=== PATIENT | female | born 1985 | race Caucasian/White ===

== ENCOUNTER 2016-09-21 22:51 | Emergency (ER) | payer MEDICAID | END 2016-09-22 03:00 | disposition left against medical advice (07) | LOC: ER 22:51 | DX: Z53.9 Procedure and treatment not carried out, unspecified reason (principal); J02.9 Acute pharyngitis, unspecified ==

== ENCOUNTER 2016-09-22 10:34 | Emergency (ER) | payer MEDICAID ==
[2016-09-22] MEDS ORDERED: ONDANSETRON HCL 8 MG TABLET ONE (12:21)
[2016-09-22] MEDS ORDERED: ACETAMINOPHEN 325 MG TABLET ONE (12:22)
== END 2016-09-22 13:40 | disposition home or self-care (01) ==
LOC: ER 10:34
DX: J06.9 Acute upper respiratory infection, unspecified (principal); J02.9 Acute pharyngitis, unspecified; R09.81 Nasal congestion; R51 Headache; R05 Cough; R50.9 Fever, unspecified; R11.0 Nausea
CPT/HCPCS: 87070; 87880; 99283

== ENCOUNTER 2016-12-05 12:39 | Emergency (ER) | payer SELFPAY ==
[2016-12-05 12:46] VITALS: BP 148/84
--- NOTE | 2016-12-05 12:55 | ER Document Report ---
ED Medical Screen (RME) - General Chief Complaint: Vaginal Bleeding Stated Complaint: GROIN PAIN WITHOUT INJURY Time Seen by Provider: 12/05/16 12:52 Mode of Arrival: Ambulatory Information source: Patient TRAVEL OUTSIDE OF THE [place] IN LAST 30 DAYS: No - HPI Patient complains to provider of: Abdominal pain Notes: 12/05/16 12:55 Patient is a 31-year-old female who presents to the emergency room complaining of periumbilical abdominal pain with left groin pain, and nausea that has been going on for the past few weeks, she denies any vomiting or diarrhea, no fever chills, no urinary symptoms, no vaginal discharge or irregular bleeding - Related Data Allergies/Adverse Reactions: amoxicillin trihydrate [From Augmentin] Allergy (Severe, Verified 12/05/16 12:44 ) Hives codeine [Codeine] Allergy (Severe, Verified 12/05/16 12:44) Hives midazolam HCl [From Versed] Allergy (Severe, Verified 12/05/16 12:44) Abnormal behavior Potassium Clavulanate * [From Augmentin] Allergy (Severe, Verified 12/05/16 12: 44) Hives Sulfa (Sulfonamide Antibiotics) Allergy (Severe, Verified 12/05/16 12:44) Hives Past Medical History - Past Medical History Cardiac Medical History: Reports: Hx Hypertension Pulmonary Medical History: Endocrine Medical History: Renal/ Medical History: Denies: Hx Peritoneal Dialysis Past Surgical History: Reports: Hx Cholecystectomy, Hx Tonsillectomy - Immunizations Immunizations up to date: Yes Hx Diphtheria, Pertussis, Tetanus Vaccination: Yes Physical Exam - Vital signs Vitals: Temp Pulse Resp BP Pulse Ox 98.6 F 71 18 148/84 H 98 12/05/16 12:45 12/05/16 12:45 12/05/16 12:45 12/05/16 12:45 12/05/16 12:45 Course - Vital Signs Vital signs: Temp Pulse Resp BP Pulse Ox 98.6 F 71 18 148/84 H 98 12/05/16 12:45 12/05/16 12:45 12/05/16 12:45 12/05/16 12:45 12/05/16 12:45
[2016-12-05 13:39] LABS: ABSOLUTE EOSINOPHILS # (AUTO) 0.1 10^3/uL (0.0-0.6); ABSOLUTE LYMPHOCYTES (AUTO) 2.2 10^3/uL (0.5-4.7); ABSOLUTE MONOCYTES (AUTO) 0.3 10^3/uL (0.1-1.4); ABSOLUTE NEUT (AUTO) 3.8 10^3/uL (1.7-8.2); BASOPHILS % (AUTO) 0.4 % (0-2); EOSINOPHILS % (AUTO) 0.9 % (0-6); HEMOGLOBIN 13.2 g/dL (12.0-15.5); HGB HCT DIFFERENCE 0.6; LYMPHOCYTES % (AUTO) 34.4 % (13-45); MEAN CORPUSCULAR HEMOGLOBIN 28.8 pg (27.0-33.4); MEAN CORPUSCULAR HGB CONC 33.9 g/dL (32.0-36.0); MEAN CORPUSCULAR VOLUME 85 fl (80-97); MONOCYTES % (AUTO) 5.2 % (3-13); RED BLOOD COUNT 4.59 10^6/uL (3.72-5.28); RED CELL DISTRIBUTION WIDTH 13.7 % (11.5-14.0); SEGMENTED NEUTROPHILS % (AUTO) 59.1 % (42-78); WHITE BLOOD COUNT 6.5 10^3/uL (4.0-10.5)
[2016-12-05 13:48] LABS: APPEARANCE,URINE SLIGHTLY-CLOUDY; BILIRUBIN,URINE NEGATIVE (NEGATIVE); GLUCOSE, URINE NEGATIVE (NEGATIVE); KETONES,URINE NEGATIVE (NEGATIVE); LEUKOCYTE ESTERASE,URINE NEGATIVE (NEGATIVE); NITRITE,URINE NEGATIVE (NEGATIVE); PROTEIN,URINE NEGATIVE (NEGATIVE); URINE SPECIFIC GRAVITY 1.027; UROBILINOGEN,URINE NEGATIVE mg/dL (<2.0)
[2016-12-05 13:58] LABS: ALANINE AMINOTRANSFERASE 34 U/L (9-52); ALBUMIN 4.6 g/dL (3.5-5.0); ALKALINE PHOSPHATASE 68 U/L (38-126); ANION GAP 11 (5-19); ASPARTATE AMINO TRANSFERASE 24 U/L (14-36); BILIRUBIN,DIRECT 0.3 mg/dL (0.0-0.4); BILIRUBIN,TOTAL 0.7 mg/dL (0.2-1.3); BLOOD UREA NITROGEN 18 mg/dL (7-20); CARBON DIOXIDE 27 mmol/L (22-30); CHLORIDE 103 mmol/L (98-107); CREATININE RESULT 0.68 mg/dL (0.52-1.25); GLUCOSE 102 mg/dL (75-110); LIPASE 111.4 U/L (23-300); POTASSIUM 4.1 mmol/L (3.6-5.0); SODIUM 140.9 mmol/L (137-145); TOTAL PROTEIN 7.7 g/dL (6.3-8.2)
--- NOTE | 2016-12-05 13:58 | RADIOLOGY REPORT (SQ) ---
EXAM DESCRIPTION: U/S NON OB PEL TV W/DOPPLER COMPLETED DATE/TIME: 12/05/2016 1:44 pm REASON FOR STUDY: left pelvic pain COMPARISON: None. TECHNIQUE: Dynamic and static grayscale images acquired of the pelvis via transvaginal approach and recorded on PACS. Additional selected color Doppler and spectral images recorded. LIMITATIONS: None. FINDINGS: UTERUS: Contour normal. No mass. ENDOMETRIAL STRIPE: No focal or generalized thickening. No masses. CERVIX: Nabothian cysts. RIGHT OVARY: No abnormal masses. RIGHT OVARY DOPPLER: Normal arterial vascular flow without evidence for torsion. LEFT OVARY: No abnormal masses. LEFT OVARY DOPPLER: Normal arterial vascular flow without evidence for torsion. FREE FLUID: None noted. OTHER: No other significant finding. MEASUREMENTS: UTERUS: 1.1 x 6.1 x 4.8 cm. ENDOMETRIAL STRIPE: 8 mm. RIGHT OVARY: 3.2 x 1.9 x 1.9 cm. LEFT OVARY: 2.9 x 1.8 x 1.8 cm. IMPRESSION: Nabothian cysts. Otherwise normal. TECHNICAL DOCUMENTATION: JOB ID: [id number]- All Rights Reserved
--- NOTE | 2016-12-05 14:12 | ER Document Report ---
ED GI/ - General Chief Complaint: Vaginal Bleeding Stated Complaint: GROIN PAIN WITHOUT INJURY Time Seen by Provider: 12/05/16 12:52 Mode of Arrival: Ambulatory Information source: Patient TRAVEL OUTSIDE OF THE [place] IN LAST 30 DAYS: No - HPI Patient complains to provider of: Abdominal pain, Pelvic pain Onset: Last week Timing/Duration: Intermittent Quality of pain: Achy, Cramping Severity at maximum: Mild Severity in ED: Mild Pain Level: 1 Location: Pelvis Vaginal bleeding (Compared to normal period): Spotting, Dark brown Associated symptoms: None Exacerbated by: Denies Relieved by: Denies Notes: 12/05/16 14:09 Is a 31-year-old female who presents to the emergency room complaining of left- sided pelvic pain is been going on for the past week with small amount of intermittent brownish spotting, she denies a history of similar symptoms previously, no urinary symptoms, no nausea, vomiting or diarrhea, no fever or chills - Related Data Allergies/Adverse Reactions: amoxicillin trihydrate [From Augmentin] Allergy (Severe, Verified 12/05/16 12:44 ) Hives codeine [Codeine] Allergy (Severe, Verified 12/05/16 12:44) Hives midazolam HCl [From Versed] Allergy (Severe, Verified 12/05/16 12:44) Abnormal behavior Potassium Clavulanate * [From Augmentin] Allergy (Severe, Verified 12/05/16 12: 44) Hives Sulfa (Sulfonamide Antibiotics) Allergy (Severe, Verified 12/05/16 12:44) Hives Past Medical History - General Information source: Patient - Social History Smoking Status: Never Smoker Chew tobacco use (# tins/day): No Frequency of alcohol use: None Drug Abuse: None Family History: Reviewed & Not Pertinent, Hypertension - Past Medical History Cardiac Medical History: Reports: Hx Hypertension Pulmonary Medical History: Endocrine Medical History: Renal/ Medical History: Denies: Hx Peritoneal Dialysis Past Surgical History: Reports: Hx Cholecystectomy, Hx Tonsillectomy - Immunizations Immunizations up to date: Yes Hx Diphtheria, Pertussis, Tetanus Vaccination: Yes Review of Systems - Review of Systems Constitutional: No symptoms reported EENT: No symptoms reported Cardiovascular: No symptoms reported Respiratory: No symptoms reported Gastrointestinal: No symptoms reported Genitourinary: No symptoms reported Female Genitourinary: See HPI Musculoskeletal: No symptoms reported Skin: No symptoms reported Hematologic/Lymphatic: No symptoms reported Neurological/Psychological: No symptoms reported -: Yes All other systems reviewed and negative Physical Exam - Vital signs Vitals: Temp Pulse Resp BP Pulse Ox 98.6 F 71 18 148/84 H 98 12/05/16 12:45 12/05/16 12:45 12/05/16 12:45 12/05/16 12:45 12/05/16 12:45 - Notes Notes: - General General appearance: Appears well, Alert In distress: None - HEENT Head: Normocephalic, Atraumatic Eyes: Normal Conjunctiva: Normal Extraocular movements intact: Yes Eyelashes: Normal Pupils: PERRL - Respiratory Respiratory status: No respiratory distress - Cardiovascular Rhythm: Regular - Abdominal Inspection: Mildly obese, mild tenderness in left groin area - Back Back: Normal - Extremities General upper extremity: Normal inspection General lower extremity: Normal inspection - Neurological Neuro grossly intact: Yes Orientation: AAOx4 [place] Coma Scale Eye Opening: Spontaneous [place] Coma Scale Verbal: Oriented [place] Coma Scale Motor: Obeys Commands [place] Coma Scale Total: 15 - Psychological Associated symptoms: Normal affect, Normal mood - Skin Skin Temperature: Warm Skin Moisture: Dry Skin Color: Normal Course - Re-evaluation Re-evalutation: 12/05/16 21:13 Lab and imaging findings were discussed with patient at bedside which are unremarkable, she was given a prescription for Motrin 600 mg and advised to follow-up with her primary care provider as needed, return if symptoms worsen, patient acknowledges understanding and agreement with this plan - Vital Signs Vital signs: Temp Pulse Resp BP Pulse Ox 98.6 F 71 18 148/84 H 98 12/05/16 12:45 12/05/16 12:45 12/05/16 12:45 12/05/16 12:45 12/05/16 12:45 - Laboratory Result Diagrams: 12/05/16 13:15 12/05/16 13:15 Laboratory results interpreted by me: 12/05/16 13:10 Urine Blood SMALL H - Diagnostic Test Radiology reviewed: Image reviewed, Reports reviewed Discharge - Discharge Clinical Impression: Pelvic pain Condition: Stable Disposition: HOME, SELF-CARE Instructions: Pelvic Pain ([facility]) Additional Instructions: Follow up with your primary care provider in one to 2 days. Return to the emergency room immediately if symptoms worsen or any additional concerns. Prescriptions: Ibuprofen [Motrin 600 Mg Tablet] 600 mg PO TID #30 tablet
== END 2016-12-05 14:25 | disposition home or self-care (01) ==
LOC: ER 12:39
DX: R10.2 Pelvic and perineal pain (principal); I10 Essential (primary) hypertension; Z88.0 Allergy status to penicillin; Z88.5 Allergy status to narcotic agent; Z88.2 Allergy status to sulfonamides; Z88.4 Allergy status to anesthetic agent; Z90.49 Acquired absence of other specified parts of digestive tract
CPT/HCPCS: 36415; 76830; 80053; 81001; 83690; 84703; 85025; 87086; 93976; 99284

== ENCOUNTER 2016-12-21 22:53 | Emergency (ER) | payer SELFPAY ==
--- NOTE | 2016-12-21 23:24 | ER Document Report ---
ED General - General Mode of Arrival: Ambulatory Information source: Patient TRAVEL OUTSIDE OF THE [place] IN LAST 30 DAYS: No - HPI Onset: This evening <DARA SANTIAGO - Last Filed: 12/22/16 01:09> <ROSIO HILLMAN - Last Filed: 12/27/16 11:37> - General Chief Complaint: Chest Pain Stated Complaint: CHEST PAIN Time Seen by Provider: 12/21/16 23:17 Notes: Patient is a 31-year-old female presenting to the emergency department for chest pain. Patient states her chest pain was onset at night and is located in the middle of her chest. Patient's pain also radiates into her back and shoulders. Patient's pain is waxing and waning and is dull and achy. Patient' s pain lasts for more than a minute at most. Patient denies any history of smoking, control use, or history of blood clots in family or herself. Patient does have a history of hypertension and takes lisinopril. Patient also has a history of ovarian cysts and cholecystectomy. 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 (DARA SANTIAGO) - Related Data Allergies/Adverse Reactions: amoxicillin trihydrate [From Augmentin] Allergy (Severe, Verified 12/05/16 12:44 ) Hives codeine [Codeine] Allergy (Severe, Verified 12/05/16 12:44) Hives midazolam HCl [From Versed] Allergy (Severe, Verified 12/05/16 12:44) Abnormal behavior Potassium Clavulanate * [From Augmentin] Allergy (Severe, Verified 12/05/16 12: 44) Hives Sulfa (Sulfonamide Antibiotics) Allergy (Severe, Verified 12/05/16 12:44) Hives Past Medical History - General Information source: Patient - Social History Smoking Status: Never Smoker Cigarette use (# per day): No Chew tobacco use (# tins/day): No Smoking Education Provided: No Frequency of alcohol use: None Drug Abuse: None Family History: Hypertension Patient has suicidal ideation: No Patient has homicidal ideation: No - Past Medical History Cardiac Medical History: Reports: Hx Hypertension Pulmonary Medical History: Endocrine Medical History: Renal/ Medical History: Past Surgical History: Reports: Hx Cholecystectomy, Hx Tonsillectomy - Immunizations Immunizations up to date: Yes Hx Diphtheria, Pertussis, Tetanus Vaccination: Yes <DARA SANTIAGO - Last Filed: 12/22/16 01:09> Review of Systems - Review of Systems Constitutional: No symptoms reported EENT: No symptoms reported Cardiovascular: See HPI, Chest pain Respiratory: No symptoms reported Gastrointestinal: No symptoms reported Genitourinary: No symptoms reported Female Genitourinary: No symptoms reported Musculoskeletal: See HPI Skin: No symptoms reported Hematologic/Lymphatic: No symptoms reported Neurological/Psychological: No symptoms reported -: Yes All other systems reviewed and negative <CHRISTOPHEDARA ROBISON - Last Filed: 12/22/16 01:09> Physical Exam - Vital signs Interpretation: Hypertensive <DARA SANTIAGO - Last Filed: 12/22/16 01:09> <ROSIO HILLMAN - Last Filed: 12/27/16 11:37> - Vital signs Vitals: Temp Pulse Resp BP Pulse Ox 98.0 F 81 16 140/98 H 98 12/21/16 23:01 12/21/16 23:01 12/21/16 23:01 12/21/16 23:01 12/21/16 23:01 - Notes Notes: GENERAL: Alert, interacts well. No acute distress. HEAD: Normocephalic, atraumatic. EYES: Appear normal. Pupils equal, round, and reactive to light. ENT: Moist mucus membranes, tongue midline. NECK: Full range of motion. Supple. Trachea midline. LUNGS: Clear to auscultation bilaterally, no wheezes, rales, or rhonchi. No respiratory distress. No anterior chest wall tenderness or sternal tenderness with palpation. HEART: Regular rate and rhythm. No murmurs, gallops, or rubs. ABDOMEN: Soft, non-tender. Non-distended. Normal bowel sounds. EXTREMITIES: Moves all 4 extremities spontaneously. Normal strength. No edema. NEUROLOGICAL: Alert and oriented x3. Normal speech. No focal neurological deficits. GSC 15. PSYCH: Normal affect, normal mood. SKIN: Warm, dry, normal turgor. No rashes or lesions noted. (DARA SANTIAGO) Course - Laboratory Result Diagrams: 12/21/16 23:25 12/21/16 23:25 <DARA SANTIAGO - Last Filed: 12/22/16 01:09> - Laboratory Result Diagrams: 12/21/16 23:25 12/21/16 23:25 <ROSIO HILLMAN - Last Filed: 12/27/16 11:37> - Vital Signs Vital signs: Temp Pulse Resp BP Pulse Ox 97.7 F 83 15 134/75 H 96 12/22/16 02:45 12/22/16 02:45 12/22/16 02:45 12/22/16 02:45 12/22/16 02:45 - Laboratory Laboratory results interpreted by me: 12/21/16 23:25 Hct 35.6 L - EKG Interpretation by Me Additional EKG results interpreted by me: 12/22/16 02:37 J sinus rhythm LVH no acute ST segment elevation or depression (ROSIO HILLMAN) Discharge <DARA SANTIAGO - Last Filed: 12/22/16 01:09> <ROSIO HILLMAN - Last Filed: 12/27/16 11:37> - Discharge Clinical Impression: Chest pain nonspecific Condition: Stable Disposition: HOME, SELF-CARE Instructions: Chest Pain of Unclear Cause ([facility]) Forms: Return to Work Referrals: [facility] [Provider Group] - Follow up in 3-5 days Scribe Attestation: 12/22/16 02:36 I personally performed the services described in the documentation, reviewed and edited the documentation which was dictated to my scribe in my presence, and it accurately records my words and actions. (ROSIO HILLMAN) Scribe Documentation - Scribe Written by Scribe:: Seema Deleon, 12/22/2016 1:10 acting as scribe for :: James <DARA SANTIAGO - Last Filed: 12/22/16 01:09>
[2016-12-21 23:39] LABS: ABSOLUTE BASOPHILS # (AUTO) 0.1 10^3/uL (0.0-0.2); ABSOLUTE EOSINOPHILS # (AUTO) 0.1 10^3/uL (0.0-0.6); ABSOLUTE LYMPHOCYTES (AUTO) 2.7 10^3/uL (0.5-4.7); ABSOLUTE MONOCYTES (AUTO) 0.5 10^3/uL (0.1-1.4); ABSOLUTE NEUT (AUTO) 4.1 10^3/uL (1.7-8.2); BASOPHILS % (AUTO) 0.9 % (0-2); EOSINOPHILS % (AUTO) 1.4 % (0-6); HEMATOCRIT 35.6 % (36.0-47.0); HEMOGLOBIN 12.1 g/dL (12.0-15.5); HGB HCT DIFFERENCE 0.7; LYMPHOCYTES % (AUTO) 35.8 % (13-45); MEAN CORPUSCULAR HEMOGLOBIN 29.4 pg (27.0-33.4); MEAN CORPUSCULAR VOLUME 87 fl (80-97); MONOCYTES % (AUTO) 6.9 % (3-13); RED BLOOD COUNT 4.11 10^6/uL (3.72-5.28); WHITE BLOOD COUNT 7.4 10^3/uL (4.0-10.5)
--- NOTE | 2016-12-21 23:48 | RADIOLOGY REPORT (SQ) ---
EXAM DESCRIPTION: CHEST SINGLE VIEW COMPLETED DATE/TIME: 12/21/2016 11:40 pm REASON FOR STUDY: chest pain COMPARISON: March 2015 EXAM PARAMETERS: NUMBER OF VIEWS: One view. TECHNIQUE: Single frontal radiographic view of the chest acquired. RADIATION DOSE: NA LIMITATIONS: None. FINDINGS: LUNGS AND PLEURA: No opacities, masses or pneumothorax. No pleural effusion. MEDIASTINUM AND HILAR STRUCTURES: No masses. Contour normal. HEART AND VASCULAR STRUCTURES: Heart normal in size. Normal vasculature. BONES: No acute findings. Mild thoracic scoliosis convex to the right is again identified. HARDWARE: None in the chest. OTHER: No other significant finding. IMPRESSION: No significant interval change. No acute findings. Other findings as noted above TECHNICAL DOCUMENTATION: JOB ID: [id number]
[2016-12-22 00:02] LABS: ANION GAP 10 (5-19); BLOOD UREA NITROGEN 15 mg/dL (7-20); CALCIUM 9.8 mg/dL (8.4-10.2); CARBON DIOXIDE 26 mmol/L (22-30); CHLORIDE 104 mmol/L (98-107); CREATININE RESULT 0.58 mg/dL (0.52-1.25); GLUCOSE 91 mg/dL (75-110); POTASSIUM 4.2 mmol/L (3.6-5.0); SODIUM 139.9 mmol/L (137-145)
[2016-12-22 00:15] LABS: TROPONIN I < 0.012 ng/mL
[2016-12-22 01:15] LABS: URINE BARBITURATES SCREEN NEGATIVE; URINE METHADONE SCREEN NEGATIVE; URINE OPIATES LOW NEGATIVE; URINE PHENCYCLIDINE SCREEN NEGATIVE
[2016-12-22 02:49] VITALS: BP 134/75
--- NOTE | 2016-12-22 08:11 | EKG REPORT ---
SEVERITY:- ABNORMAL ECG - SINUS RHYTHM CONSIDER LEFT VENTRICULAR HYPERTROPHY : Confirmed by: Cedric Manriquez MD 22-Dec-2016 08:10:30
== END 2016-12-22 02:45 | disposition home or self-care (01) ==
LOC: ER 22:53
DX: R07.89 Other chest pain (principal); I10 Essential (primary) hypertension; Z88.6 Allergy status to analgesic agent; Z88.2 Allergy status to sulfonamides
CPT/HCPCS: 36415; 71010; 80048; 80307; 83880; 84484; 85025; 93005; 93010; 99285

== ENCOUNTER 2017-03-01 15:56 | Emergency (ER) | payer SELFPAY ==
[2017-03-01] MEDS ORDERED: BUTALB/ACETAMINOPHEN/CAFFEINE 1 TAB EACH PO ONE (17:34)
[2017-03-01 18:02] LABS: ABSOLUTE EOSINOPHILS # (AUTO) 0.1 10^3/uL (0.0-0.6); ABSOLUTE LYMPHOCYTES (AUTO) 2.8 10^3/uL (0.5-4.7); ABSOLUTE MONOCYTES (AUTO) 0.5 10^3/uL (0.1-1.4); ABSOLUTE NEUT (AUTO) 4.7 10^3/uL (1.7-8.2); BASOPHILS % (AUTO) 0.6 % (0-2); EOSINOPHILS % (AUTO) 1.8 % (0-6); HEMATOCRIT 39.9 % (36.0-47.0); HEMOGLOBIN 13.7 g/dL (12.0-15.5); HGB HCT DIFFERENCE 1.2; LYMPHOCYTES % (AUTO) 34.1 % (13-45); MEAN CORPUSCULAR HEMOGLOBIN 29.4 pg (27.0-33.4); MEAN CORPUSCULAR HGB CONC 34.4 g/dL (32.0-36.0); MEAN CORPUSCULAR VOLUME 86 fl (80-97); MONOCYTES % (AUTO) 6.5 % (3-13); RED BLOOD COUNT 4.65 10^6/uL (3.72-5.28); RED CELL DISTRIBUTION WIDTH 13.6 % (11.5-14.0); WHITE BLOOD COUNT 8.2 10^3/uL (4.0-10.5)
[2017-03-01 18:13] LABS: APPEARANCE,URINE CLEAR; BILIRUBIN,URINE NEGATIVE (NEGATIVE); GLUCOSE, URINE NEGATIVE (NEGATIVE); KETONES,URINE NEGATIVE (NEGATIVE); LEUKOCYTE ESTERASE,URINE NEGATIVE (NEGATIVE); NITRITE,URINE NEGATIVE (NEGATIVE); PROTEIN,URINE NEGATIVE (NEGATIVE); URINE SPECIFIC GRAVITY 1.013; UROBILINOGEN,URINE NEGATIVE mg/dL (<2.0)
[2017-03-01 18:17] LABS: ALANINE AMINOTRANSFERASE 41 U/L (9-52); ALBUMIN 4.7 g/dL (3.5-5.0); ALKALINE PHOSPHATASE 62 U/L (38-126); ANION GAP 12 (5-19); ASPARTATE AMINO TRANSFERASE 26 U/L (14-36); BILIRUBIN,DIRECT 0.4 mg/dL (0.0-0.4); BILIRUBIN,TOTAL 0.5 mg/dL (0.2-1.3); BLOOD UREA NITROGEN 13 mg/dL (7-20); CARBON DIOXIDE 28 mmol/L (22-30); CHLORIDE 102 mmol/L (98-107); CREATININE RESULT 0.63 mg/dL (0.52-1.25); GLUCOSE 90 mg/dL (75-110); POTASSIUM 4.5 mmol/L (3.6-5.0); SODIUM 141.7 mmol/L (137-145); TOTAL PROTEIN 7.6 g/dL (6.3-8.2)
--- NOTE | 2017-03-01 18:45 | ER Document Report ---
ED General - General Chief Complaint: Headache Stated Complaint: HEADACHE,NAUSEA,LEG SWELLING Time Seen by Provider: 03/01/17 17:31 Mode of Arrival: Ambulatory Information source: Patient Notes: Patient complains of bilateral lower extremity swelling as well as a headache. Headache is diffuse and throbbing. It does not radiate. Nothing makes it better or worse. She states that it is intermittent. He denies any shortness of breath nausea or vomiting. The pain is aching sensation. TRAVEL OUTSIDE OF THE [place] IN LAST 30 DAYS: No - Related Data Allergies/Adverse Reactions: amoxicillin trihydrate [From Augmentin] Allergy (Severe, Verified 03/01/17 16:10 ) Hives codeine [Codeine] Allergy (Severe, Verified 03/01/17 16:10) Hives midazolam HCl [From Versed] Allergy (Severe, Verified 03/01/17 16:10) Abnormal behavior Potassium Clavulanate * [From Augmentin] Allergy (Severe, Verified 03/01/17 16: 10) Hives Sulfa (Sulfonamide Antibiotics) Allergy (Severe, Verified 03/01/17 16:10) Hives Past Medical History - General Information source: Patient - Social History Smoking Status: Unknown if Ever Smoked Frequency of alcohol use: Occasional Drug Abuse: None Family History: Hypertension - Past Medical History Cardiac Medical History: Reports: Hx Hypertension Pulmonary Medical History: Endocrine Medical History: Renal/ Medical History: Denies: Hx Peritoneal Dialysis Past Surgical History: Reports: Hx Cholecystectomy, Hx Tonsillectomy - Immunizations Immunizations up to date: Yes Hx Diphtheria, Pertussis, Tetanus Vaccination: Yes Review of Systems - Review of Systems Constitutional: denies: Chills, Fever Cardiovascular: denies: Chest pain, Palpitations Respiratory: denies: Cough, Short of breath -: Yes All other systems reviewed and negative Physical Exam - Vital signs Vitals: Temp Pulse BP Pulse Ox 98.6 F 71 146/101 H 98 03/01/17 16:08 03/01/17 16:08 03/01/17 16:08 03/01/17 16:08 Interpretation: Hypertensive - General General appearance: Appears well, Alert - HEENT Head: Normocephalic, Atraumatic Eyes: Normal Pupils: PERRL - Respiratory Respiratory status: No respiratory distress Chest status: Nontender Breath sounds: Normal Chest palpation: Normal - Cardiovascular Rhythm: Regular Heart sounds: Normal auscultation Murmur: No - Abdominal Inspection: Normal Distension: No distension Bowel sounds: Normal Tenderness: Nontender Organomegaly: No organomegaly - Back Back: Normal, Nontender - Extremities General upper extremity: Normal inspection, Nontender, Normal color, Normal ROM , Normal temperature General lower extremity: Normal inspection, Nontender, Normal color, Normal ROM , Normal temperature, Normal weight bearing. No: Rosalina's sign - Neurological Neuro grossly intact: Yes Cognition: Normal Orientation: AAOx4 [place] Coma Scale Eye Opening: Spontaneous [place] Coma Scale Verbal: Oriented [place] Coma Scale Motor: Obeys Commands [place] Coma Scale Total: 15 Speech: Normal Motor strength normal: LUE, RUE, LLE, RLE Sensory: Normal - Psychological Associated symptoms: Normal affect, Normal mood - Skin Skin Temperature: Warm Skin Moisture: Dry Skin Color: Normal Course - Vital Signs Vital signs: Temp Pulse Resp BP Pulse Ox 98.6 F 71 143/94 H 98 03/01/17 16:08 03/01/17 16:08 03/01/17 17:32 03/01/17 16:08 - Laboratory Result Diagrams: 03/01/17 17:35 03/01/17 17:35 Laboratory results interpreted by me: 03/01/17 17:45 Urine Blood SMALL H Discharge - Discharge Clinical Impression: Bilateral lower extremity edema Headache Qualifiers: Headache type: unspecified Headache chronicity pattern: acute headache Intractability: intractable Qualified Code(s): R51 - Headache Condition: Stable Disposition: HOME, SELF-CARE Instructions: Headache ([facility]) Additional Instructions: Please call your primary care physician as soon as possible to arrange follow- up. Prescriptions: Butalb/Acetaminophen/Caffeine [Fioricet (50-325-40 mg) Tablet] 1 - 2 tab PO Q6 PRN #15 tab PRN Reason: Forms: Elevated Blood Pressure
[2017-03-01 18:57] VITALS: BP 149/93
== END 2017-03-01 18:55 | disposition home or self-care (01) ==
LOC: ER 15:56
DX: R51 Headache (principal); R60.0 Localized edema; I10 Essential (primary) hypertension; Z88.0 Allergy status to penicillin; Z88.5 Allergy status to narcotic agent; Z88.2 Allergy status to sulfonamides; Z88.4 Allergy status to anesthetic agent
CPT/HCPCS: 99283; 36415; 85025; 81025; 80053; 81001; J3490

== ENCOUNTER 2017-04-06 14:58 | Emergency (ER) | payer MEDICAID ==
[2017-04-06] MEDS ORDERED: NORMAL SALINE 1000 ML 1,000 ML IV ONE (15:46)
[2017-04-06] MEDS ORDERED: METOCLOPRAMIDE HCL INJ/PF 10 MG/2 ML SDV IV ONE (15:47)
--- NOTE | 2017-04-06 15:47 | ER Document Report ---
ED Medical Screen (RME) - General Chief Complaint: Vomiting Stated Complaint: VOMITING Time Seen by Provider: 04/06/17 15:46 Notes: Patient states she is 8 weeks and has severe nausea and vomiting. She denies any significant pain. She states she did have a ultrasound done 2 days ago and everything was "normal". No vaginal discharge or bleeding. TRAVEL OUTSIDE OF THE [place] IN LAST 30 DAYS: No - Related Data Allergies/Adverse Reactions: amoxicillin trihydrate [From Augmentin] Allergy (Severe, Verified 04/06/17 15:18 ) Hives codeine [Codeine] Allergy (Severe, Verified 03/13/17 16:30) Hives midazolam HCl [From Versed] Allergy (Severe, Verified 03/13/17 16:30) Abnormal behavior Potassium Clavulanate * [From Augmentin] Allergy (Severe, Verified 03/13/17 16: 30) Hives Sulfa (Sulfonamide Antibiotics) Allergy (Severe, Verified 03/13/17 16:30) Hives Past Medical History - Past Medical History Cardiac Medical History: Reports: Hx Hypertension Pulmonary Medical History: Endocrine Medical History: Renal/ Medical History: Denies: Hx Peritoneal Dialysis Past Surgical History: Reports: Hx Cholecystectomy, Hx Tonsillectomy - Immunizations Immunizations up to date: Yes Hx Diphtheria, Pertussis, Tetanus Vaccination: Yes Physical Exam - Vital signs Vitals: Temp Pulse Resp BP Pulse Ox 98.3 F 86 12 135/81 H 97 04/06/17 15:19 04/06/17 15:19 04/06/17 15:19 04/06/17 15:19 04/06/17 15:19 Course - Vital Signs Vital signs: Temp Pulse Resp BP Pulse Ox 98.3 F 86 12 135/81 H 97 04/06/17 15:19 04/06/17 15:19 04/06/17 15:19 04/06/17 15:19 04/06/17 15:19
[2017-04-06 16:19] LABS: ABSOLUTE LYMPHOCYTES (AUTO) 1.1 10^3/uL (0.5-4.7); ABSOLUTE MONOCYTES (AUTO) 0.2 10^3/uL (0.1-1.4); ABSOLUTE NEUT (AUTO) 4.2 10^3/uL (1.7-8.2); BASOPHILS % (AUTO) 0.4 % (0-2); EOSINOPHILS % (AUTO) 0.9 % (0-6); HEMATOCRIT 37.9 % (36.0-47.0); HGB HCT DIFFERENCE 1.1; LYMPHOCYTES % (AUTO) 19.2 % (13-45); MEAN CORPUSCULAR HEMOGLOBIN 29.3 pg (27.0-33.4); MEAN CORPUSCULAR HGB CONC 34.2 g/dL (32.0-36.0); MEAN CORPUSCULAR VOLUME 86 fl (80-97); MONOCYTES % (AUTO) 4.2 % (3-13); RED BLOOD COUNT 4.42 10^6/uL (3.72-5.28); RED CELL DISTRIBUTION WIDTH 13.9 % (11.5-14.0); SEGMENTED NEUTROPHILS % (AUTO) 75.3 % (42-78); WHITE BLOOD COUNT 5.6 10^3/uL (4.0-10.5)
[2017-04-06 16:48] LABS: ALANINE AMINOTRANSFERASE 38 U/L (9-52); ALBUMIN 4.3 g/dL (3.5-5.0); ALKALINE PHOSPHATASE 68 U/L (38-126); ANION GAP 13 (5-19); ASPARTATE AMINO TRANSFERASE 23 U/L (14-36); BILIRUBIN,DIRECT 0.4 mg/dL (0.0-0.4); BILIRUBIN,TOTAL 0.8 mg/dL (0.2-1.3); BLOOD UREA NITROGEN 9 mg/dL (7-20); CALCIUM 9.2 mg/dL (8.4-10.2); CARBON DIOXIDE 22 mmol/L (22-30); CHLORIDE 103 mmol/L (98-107); CREATININE RESULT 0.59 mg/dL (0.52-1.25); GLUCOSE 85 mg/dL (75-110); POTASSIUM 4.3 mmol/L (3.6-5.0); SODIUM 137.8 mmol/L (137-145); TOTAL PROTEIN 6.9 g/dL (6.3-8.2)
[2017-04-06 17:53] LABS: APPEARANCE,URINE SLIGHTLY-CLOUDY; BILIRUBIN,URINE NEGATIVE (NEGATIVE); GLUCOSE, URINE NEGATIVE (NEGATIVE); KETONES,URINE 20 mg/dL (NEGATIVE); LEUKOCYTE ESTERASE,URINE NEGATIVE (NEGATIVE); NITRITE,URINE NEGATIVE (NEGATIVE); PROTEIN,URINE NEGATIVE (NEGATIVE); URINE SPECIFIC GRAVITY 1.015; UROBILINOGEN,URINE NEGATIVE mg/dL (<2.0)
[2017-04-06] MEDS ORDERED: ONDANSETRON ODT 4 MG TAB (6 TAB/DSPK) PO PRN (19:07)
--- NOTE | 2017-04-06 19:07 | ER Document Report ---
ED General - General Chief Complaint: Vomiting Stated Complaint: VOMITING Time Seen by Provider: 04/06/17 15:46 Notes: Patient is a 31-year-old female 8 weeks who presents with persistent vomiting throughout the day today. Patient denies any other complaints other than the persistence of her vomiting. She has not tried any to improve her symptoms. She has not noted that anything other than attempting oral intake worsens her symptoms. She states that she has had some mild nausea and vomiting during this but today was much worse than her normal. She has not seen her [employer] regarding today's concerns. She denies any vaginal bleeding, vaginal discharge or abdominal pain. TRAVEL OUTSIDE OF THE [place] IN LAST 30 DAYS: No - Related Data Allergies/Adverse Reactions: amoxicillin trihydrate [From Augmentin] Allergy (Severe, Verified 04/06/17 15:18 ) Hives codeine [Codeine] Allergy (Severe, Verified 03/13/17 16:30) Hives midazolam HCl [From Versed] Allergy (Severe, Verified 03/13/17 16:30) Abnormal behavior Potassium Clavulanate * [From Augmentin] Allergy (Severe, Verified 03/13/17 16: 30) Hives Sulfa (Sulfonamide Antibiotics) Allergy (Severe, Verified 03/13/17 16:30) Hives Past Medical History - General Information source: Patient - Social History Smoking Status: Never Smoker Chew tobacco use (# tins/day): No Frequency of alcohol use: None Drug Abuse: None Lives with: Spouse/Significant other Family History: Hypertension Patient has suicidal ideation: No Patient has homicidal ideation: No - Past Medical History Cardiac Medical History: Reports: Hx Hypertension Pulmonary Medical History: Endocrine Medical History: Renal/ Medical History: Denies: Hx Peritoneal Dialysis Past Surgical History: Reports: Hx Cholecystectomy, Hx Tonsillectomy - Immunizations Immunizations up to date: Yes Hx Diphtheria, Pertussis, Tetanus Vaccination: Yes Review of Systems - Review of Systems Notes: Constitutional: Negative for fever. HENT: Negative for sore throat. Eyes: Negative for visual changes. Cardiovascular: Negative for chest pain. Respiratory: Negative for shortness of breath. Gastrointestinal: Negative for abdominal pain, positive for vomiting Genitourinary: Negative for dysuria. Musculoskeletal: Negative for back pain. Skin: Negative for rash. Neurological: Negative for headaches, weakness or numbness. 10 point ROS negative except as marked above and in HPI. Physical Exam - Vital signs Vitals: Temp Pulse Resp BP Pulse Ox 98.3 F 86 12 135/81 H 97 04/06/17 15:19 04/06/17 15:19 04/06/17 15:19 04/06/17 15:19 04/06/17 15:19 Interpretation: Normal Notes: PHYSICAL EXAMINATION: GENERAL: Well-appearing, well-nourished and in no acute distress. HEAD: Atraumatic, normocephalic. EYES: Pupils equal round and reactive to light, extraocular movements intact, sclera anicteric, conjunctiva are normal. ENT: nares patent, oropharynx clear without exudates. Moist mucous membranes. NECK: Normal range of motion, supple without lymphadenopathy LUNGS: Breath sounds clear to auscultation bilaterally and equal. No wheezes rales or rhonchi. HEART: Regular rate and rhythm without murmurs ABDOMEN: Soft, nontender, normoactive bowel sounds. No guarding, no rebound. No masses appreciated. EXTREMITIES: Normal range of motion, no pitting or edema. No cyanosis. NEUROLOGICAL: No focal neurological deficits. Moves all extremities spontaneously and on command. PSYCH: Normal mood, normal affect. SKIN: Warm, Dry, normal turgor, no rashes or lesions noted. Course - Re-evaluation Re-evalutation: 04/06/17 19:07 Patient presents with persistent vomiting during . Vitals at time of arrival unremarkable without tachycardia or hypotension. Laboratories reveal a normal creatinine and no evidence of significant dehydration. Patient was able to tolerate oral intake here in the emergency department. IV fluids were provided. No vaginal bleeding or discharge. Based on abdominal exam, vitals and history I do not suspect an acute appendicitis, cholestasis of , acute cholecystitis, pancreatitis, or bowel obstruction. Patient will be started on a combination of doxylamine and vitamin B6. At this time will discharge with return precautions and follow-up recommendations. Verbal discharge instructions given a the bedside and opportunity for questions given. Medication warnings reviewed. Patient is in agreement with this plan and has verbalized understanding of return precautions and the need for primary care follow-up in the next 24-72 hours. - Vital Signs Vital signs: Temp Pulse Resp BP Pulse Ox 98.1 F 73 18 133/82 H 99 04/06/17 19:29 04/06/17 19:29 04/06/17 19:29 04/06/17 19:29 04/06/17 19:29 - Laboratory Result Diagrams: 04/06/17 16:10 04/06/17 16:10 Laboratory results interpreted by me: 04/06/17 17:25 Urine Ketones 20 H Urine Blood SMALL H Discharge - Discharge Clinical Impression: Vomiting during Condition: Good Disposition: HOME, SELF-CARE Additional Instructions: You have been seen for vomiting during . You should continue to drink plenty of water and consider taking a solution such as Pedialyte if your having difficulty eating food. Please return if you become unable to drink any fluids for more than 12 hours, urinate less than twice a day, pass out, or have any other symptoms that are concerning to you. For nausea and vomiting during I recommend: Start with 10-12.5 mg of pyridoxine (vitamin B6) three times a day for 2 days. If not fully effective, Increase to 12.5 mg of pyridoxine four times a day for 2 days. If not fully effective, Increase to 25 mg of pyridoxine three times a day for 2 days. If not fully effective, Continue 25 mg pyridoxine 3 times a day, and add 12.5 mg of doxylamine before bedtime each day for 2 days. If not fully effective, Continue 25 mg pyridoxine 3 times a day, and take 12.5 mg of doxylamine twice a day. If not fully effective, Continue 25 mg pyridoxine 3 times a day, and take 12.5 mg of doxylamine three times a day. If not fully effective, Continue 25 mg pyridoxine 3 times a day, and 12.5 mg of doxylamine 3 times a day , while adding Emetrol, one to two tablespoons (15-30 cc) taken once or twice a day as needed. (Emetrol is an lova-sdz-czwesry mixture of sugar syrups and phosphoric acid [phosphorylated carbohydrate solution]) that acts by soothing the actual wall of the gastrointestinal tract). If not fully effective, Consult with your doctor. Forms: Return to Work Referrals: FELICIA KUMAR PA-C [Primary Care Provider] - Follow up as needed
[2017-04-06 19:29] VITALS: BP 133/82
== END 2017-04-06 19:29 | disposition home or self-care (01) ==
LOC: ER 14:58
DX: R11.2 Nausea with vomiting, unspecified (principal); Z3A.08 8 weeks gestation of pregnancy
CPT/HCPCS: 99284; 96361; 96374; 36415; 85025; 80053; 81001; J2765; J7030

== ENCOUNTER 2017-05-08 11:40 | Emergency (ER) | payer MEDICAID ==
--- NOTE | 2017-05-08 12:05 | ER Document Report ---
ED Medical Screen (RME) - General Chief Complaint: Pelvic Pain Stated Complaint: PELVIC AND LOW BACK PAIN Time Seen by Provider: 05/08/17 11:55 Notes: This 31-year-old female patient who is 12 weeks 3 days based on her ultrasound done at [facility] when she is 7 weeks . She reports onset last week of some pelvic pain and cramping which would occur about once a day and last a few minutes. It is now been 3 days of constant pain which is in the suprapubic region, kind of goes into the right lower quadrant and into both sides of the back. She states her urine has been dark. She she was switched from lisinopril to labetalol in March when she was found to be . I have greeted and performed a rapid initial assessment of this patient. A comprehensive ED assessment and evaluation of the patient, analysis of test results and completion of the medical decision making process will be conducted by additional ED providers. TRAVEL OUTSIDE OF THE [place] IN LAST 30 DAYS: No - Related Data Allergies/Adverse Reactions: amoxicillin trihydrate [From Augmentin] Allergy (Severe, Verified 05/08/17 11:41 ) Hives codeine [Codeine] Allergy (Severe, Verified 05/08/17 11:41) Hives midazolam HCl [From Versed] Allergy (Severe, Verified 05/08/17 11:41) Abnormal behavior Potassium Clavulanate * [From Augmentin] Allergy (Severe, Verified 05/08/17 11: 41) Hives Sulfa (Sulfonamide Antibiotics) Allergy (Severe, Verified 05/08/17 11:41) Hives Home Medications: Current Home Medications Labetalol HCl 50 mg PO BID 05/08/17 [History] Past Medical History - Past Medical History Cardiac Medical History: Reports: Hx Hypertension Pulmonary Medical History: Endocrine Medical History: Renal/ Medical History: Denies: Hx Peritoneal Dialysis Past Surgical History: Reports: Hx Cholecystectomy, Hx Tonsillectomy - Immunizations Immunizations up to date: Yes Hx Diphtheria, Pertussis, Tetanus Vaccination: Yes Physical Exam - Vital signs Vitals: Temp Pulse Resp BP Pulse Ox 97.8 F 77 20 146/83 H 100 05/08/17 11:51 05/08/17 11:51 05/08/17 11:51 05/08/17 11:51 05/08/17 11:51 Course - Vital Signs Vital signs: Temp Pulse Resp BP Pulse Ox 97.8 F 77 20 146/83 H 100 05/08/17 11:51 05/08/17 11:51 05/08/17 11:51 05/08/17 11:51 05/08/17 11:51
[2017-05-08 12:59] LABS: ABSOLUTE LYMPHOCYTES (AUTO) 1.8 10^3/uL (0.5-4.7); ABSOLUTE MONOCYTES (AUTO) 0.3 10^3/uL (0.1-1.4); ABSOLUTE NEUT (AUTO) 4.6 10^3/uL (1.7-8.2); BASOPHILS % (AUTO) 0.5 % (0-2); EOSINOPHILS % (AUTO) 0.6 % (0-6); HEMATOCRIT 34.6 % (36.0-47.0); HEMOGLOBIN 11.7 g/dL (12.0-15.5); MEAN CORPUSCULAR HEMOGLOBIN 29.3 pg (27.0-33.4); MEAN CORPUSCULAR HGB CONC 33.8 g/dL (32.0-36.0); MEAN CORPUSCULAR VOLUME 87 fl (80-97); MONOCYTES % (AUTO) 4.5 % (3-13); PLATELET COUNT 220 10^3/uL (150-450); RED BLOOD COUNT 3.99 10^6/uL (3.72-5.28); RED CELL DISTRIBUTION WIDTH 14.6 % (11.5-14.0); SEGMENTED NEUTROPHILS % (AUTO) 67.4 % (42-78); TOTAL CELLS COUNTED % (AUTO) 100 %; WHITE BLOOD COUNT 6.8 10^3/uL (4.0-10.5)
[2017-05-08 13:05] LABS: APPEARANCE,URINE SLIGHTLY-CLOUDY; BILIRUBIN,URINE NEGATIVE (NEGATIVE); COLOR,URINE YELLOW; GLUCOSE, URINE NEGATIVE (NEGATIVE); KETONES,URINE NEGATIVE (NEGATIVE); LEUKOCYTE ESTERASE,URINE TRACE (NEGATIVE); NITRITE,URINE NEGATIVE (NEGATIVE); PROTEIN,URINE NEGATIVE (NEGATIVE); URINE SPECIFIC GRAVITY 1.014; UROBILINOGEN,URINE NEGATIVE mg/dL (<2.0)
[2017-05-08 13:18] LABS: ALANINE AMINOTRANSFERASE 31 U/L (9-52); ALKALINE PHOSPHATASE 56 U/L (38-126); ANION GAP 12 (5-19); ASPARTATE AMINO TRANSFERASE 20 U/L (14-36); BILIRUBIN,DIRECT 0.4 mg/dL (0.0-0.4); BILIRUBIN,TOTAL 0.5 mg/dL (0.2-1.3); BLOOD UREA NITROGEN 10 mg/dL (7-20); CARBON DIOXIDE 24 mmol/L (22-30); CHLORIDE 105 mmol/L (98-107); GLUCOSE 78 mg/dL (75-110); POTASSIUM 3.8 mmol/L (3.6-5.0); SODIUM 140.6 mmol/L (137-145); TOTAL PROTEIN 6.7 g/dL (6.3-8.2)
--- NOTE | 2017-05-08 13:23 | ER Document Report ---
ED General - General Mode of Arrival: Ambulatory Information source: Patient TRAVEL OUTSIDE OF THE [place] IN LAST 30 DAYS: No <JOYCELYN VALENTINE - Last Filed: 05/08/17 13:18> <MILI ROSS - Last Filed: 05/08/17 17:52> - General Chief Complaint: Pelvic Pain Stated Complaint: PELVIC AND LOW BACK PAIN Time Seen by Provider: 05/08/17 11:55 Notes: Patient is a 31 year old female with a history of hypertension presents to the emergency department complaining of pelvic and abdominal cramps onset 1 week ago. Patient states she is currently 12 weeks 3 days based on an ultrasound performed at [place] done at 7 weeks. Patient states the pain started out occurring once a day, lasting 2-5 mins but has now progressed to constant pain. Patient states the pain is worse on the right than the left. Patient denies dysuria, nausea, vomiting, vaginal bleeding or hematuria. (JOYCELYN VALENTINE) - Related Data Allergies/Adverse Reactions: amoxicillin trihydrate [From Augmentin] Allergy (Severe, Verified 05/08/17 11:41 ) Hives codeine [Codeine] Allergy (Severe, Verified 05/08/17 11:41) Hives midazolam HCl [From Versed] Allergy (Severe, Verified 05/08/17 11:41) Abnormal behavior Potassium Clavulanate * [From Augmentin] Allergy (Severe, Verified 05/08/17 11: 41) Hives Sulfa (Sulfonamide Antibiotics) Allergy (Severe, Verified 05/08/17 11:41) Hives Home Medications: Current Home Medications Labetalol HCl 50 mg PO BID 05/08/17 [History] Past Medical History - General Information source: Patient - Social History Smoking Status: Never Smoker Frequency of alcohol use: None Drug Abuse: None Family History: Hypertension Patient has suicidal ideation: No Patient has homicidal ideation: No - Past Medical History Cardiac Medical History: Reports: Hx Hypertension Pulmonary Medical History: Endocrine Medical History: Renal/ Medical History: Past Surgical History: Reports: Hx Cholecystectomy, Hx Tonsillectomy - Immunizations Immunizations up to date: Yes Hx Diphtheria, Pertussis, Tetanus Vaccination: Yes <JOYCELYN VALENTINE - Last Filed: 05/08/17 13:18> Review of Systems - Review of Systems Constitutional: No symptoms reported EENT: No symptoms reported Cardiovascular: No symptoms reported Respiratory: No symptoms reported Gastrointestinal: See HPI, Abdominal pain Female Genitourinary: Musculoskeletal: No symptoms reported Skin: No symptoms reported Hematologic/Lymphatic: No symptoms reported Neurological/Psychological: No symptoms reported -: Yes All other systems reviewed and negative <MEMEJOYCELYN ARITA - Last Filed: 05/08/17 13:18> Physical Exam <MEMEJULIETNAEEM - Last Filed: 05/08/17 13:18> <MILI ROSS - Last Filed: 05/08/17 17:52> - Vital signs Vitals: Temp Pulse Resp BP Pulse Ox 97.8 F 77 20 146/83 H 100 05/08/17 11:51 05/08/17 11:51 05/08/17 11:51 05/08/17 11:51 05/08/17 11:51 - Notes Notes: GENERAL: Alert, interacts well. No acute distress. HEAD: Normocephalic, atraumatic. EYES: Pupils equal, round, and reactive to light. Extraocular movements intact. ENT: Oral mucosa moist, tongue midline. NECK: Full range of motion. Supple. Trachea midline. LUNGS: Clear to auscultation bilaterally, no wheezes, rales, or rhonchi. No respiratory distress. HEART: Regular rate and rhythm. No murmurs, gallops, or rubs. ABDOMEN: Soft, tender to palpation to the RLQ. Non-distended. Bowel sounds present in all 4 quadrants. EXTREMITIES: Moves all 4 extremities spontaneously. . No cyanosis. NEUROLOGICAL: Alert and oriented x3. Normal speech.. PSYCH: Normal affect, normal mood. SKIN: Warm, dry, normal turgor. No rashes or lesions noted. (MEMEJOYCELYN) Course - Laboratory Result Diagrams: 05/08/17 12:17 05/08/17 12:17 <MEMEJULIETNAEEM - Last Filed: 05/08/17 13:18> - Laboratory Result Diagrams: 05/08/17 12:17 05/08/17 12:17 <MILI ROSS - Last Filed: 05/08/17 17:52> - Re-evaluation Re-evalutation: 05/08/17 16:28 Plan transvaginal ultrasound shows single living intrauterine 12 weeks and 6 days, heart rate is 162 bpm, there is no subchorionic hemorrhage, cervix is closed, neither ovary is identified although there is no adnexal free fluid or masses. CBC shows anemia with hemoglobin 11.7, no leukocytosis, no left shift, CMP unremarkable, test is positive, urinalysis shows trace leukocyte esterase with trace bacteria and 15 WBCs, only 1 squamous epithelial cell. Given the symptoms that she is having of right lower quadrant pain I am inclined to treat this as a true urinary tract infection, it has been sent for culture as well. I did discuss with the patient that she could be having an early appendicitis but at this time without fever or leukocytosis it is more prudent to wait and see what other to symptoms she develops then to perform a CAT scan at this point in given her reassuring examination. Patient will be discharged to home with Macrodantin for her urinary tract infection, urine will be sent for culture and patient will return for fevers, vomiting or worsening pain. (MILI ROSS) - Vital Signs Vital signs: Temp Pulse Resp BP Pulse Ox 98.1 F 67 16 135/60 H 100 05/08/17 16:36 05/08/17 16:36 05/08/17 16:36 05/08/17 16:36 05/08/17 16:36 - Laboratory Laboratory results interpreted by me: 05/08/17 05/08/17 05/08/17 12:17 12:17 12:17 Hgb 11.7 L Hct 34.6 L RDW 14.6 H Creatinine 0.51 L Serum HCG, Qual Beta HCG, Quant Ur Leukocyte Esterase TRACE H 05/08/17 05/08/17 12:17 12:17 Hgb Hct RDW Creatinine Serum HCG, Qual POSITIVE H Beta HCG, Quant 98179.00 H Ur Leukocyte Esterase Discharge <JOYCELYN VALENTINE - Last Filed: 05/08/17 13:18> <MILI ROSS - Last Filed: 05/08/17 17:52> - Discharge Clinical Impression: with abdominal pain of right lower quadrant, antepartum, First trimester UTI (urinary tract infection) Qualifiers: Urinary tract infection type: acute cystitis Hematuria presence: with hematuria Qualified Code(s): N30.01 - Acute cystitis with hematuria Hypertension Qualifiers: Hypertension type: essential hypertension Qualified Code(s): I10 - Essential ( primary) hypertension Condition: Stable Disposition: HOME, SELF-CARE Additional Instructions: We are treating her urinary tract infection with an antibiotic. If you develop fevers, your pain worsens, you develop vomiting or any new or concerning symptoms please return to the emergency department. Today we did not see an elevated white blood cell count which makes it less likely that she would have appendicitis however this could be very early appendicitis. Please return immediately should you develop fevers or significantly worsening pain. Prescriptions: Nitrofurantoin/Nitrofuran Mac [Macrobid 100 mg Capsule] 1 tab PO BID #14 capsule Referrals: FELICIA KUMAR PA-C [Primary Care Provider] - Follow up in 3-5 days Scribe Attestation: 05/08/17 17:52 I personally performed the services described in the documentation, reviewed and edited the documentation which was dictated to the scribe in my presence, and it accurately records my words and actions. (MILI ROSS) Scribe Documentation - Scribe Written by Christiane:: Seema Aden, 05/08/2017 13:24 acting as scribe for :: Juan José <JOYCELYN VALENTINE - Last Filed: 05/08/17 13:18>
[2017-05-08] MEDS ORDERED: ACETAMINOPHEN 325 MG TABLET PO ONE (13:40)
--- NOTE | 2017-05-08 14:58 | RADIOLOGY REPORT (SQ) ---
EXAM DESCRIPTION: U/S OB TRANSVAG W/DOPPLER COMPLETED DATE/TIME: 05/08/2017 2:39 pm REASON FOR STUDY: cramping, 12 wks, RLQ abd pain, look at ovary COMPARISON: 03/10/2017 TECHNIQUE: Transvaginal and transabdominal static and realtime grayscale images acquired of the pelv is. Additional selected spectral and color Doppler images recorded. All images stored on PACs. C,163 LIMITATIONS: None. FINDINGS: FETUS: Living intrauterine . EGA: 12 weeks 6 days. JHOAN: 11/14/2017. FHR: 162 beats per minute. SUBCHORIONIC BLEED: No. SIZE OF BLEED: Not applicable. UTERUS: No masses. No anomalies. CERVICAL LENGTH: 4.4 cm. Closed. RIGHT ADNEXA: Ovary not identified. No adnexal free fluid. No adnexal masses. LEFT ADNEXA: Ovary not identified. No adnexal free fluid. No adnexal masses. FREE FLUID: None. OTHER: No other significant finding. IMPRESSION: LIVING INTRAUTERINE . EGA 12 WEEKS 6 DAYS. Trimester of : First - 0 to 13 weeks. TECHNICAL DOCUMENTATION: JOB ID: [id number] [employer]- All Rights Reserved
[2017-05-08 16:49] VITALS: BP 135/60
== END 2017-05-08 16:40 | disposition home or self-care (01) ==
LOC: ER 11:40
DX: O23.11 Infections of bladder in pregnancy, first trimester (principal); O26.891 Other specified pregnancy related conditions, first trimester; O16.1 Unspecified maternal hypertension, first trimester; R10.31 Right lower quadrant pain; R10.2 Pelvic and perineal pain; M54.5 Low back pain; Z3A.12 12 weeks gestation of pregnancy; Z79.899 Other long term (current) drug therapy
CPT/HCPCS: 99284; 36415; 87086; 84702; 84703; 85025; 80053; 81001; 76817; 93976; J3490

== ENCOUNTER 2017-07-19 16:29 | Emergency (ER) | payer SELFPAY ==
[2017-07-19] MEDS ORDERED: METOCLOPRAMIDE HCL INJ/PF 10 MG/2 ML SDV IV ONE (17:23)
[2017-07-19] MEDS ORDERED: NORMAL SALINE 1000 ML 1,000 ML IV ONE (17:23)
--- NOTE | 2017-07-19 17:23 | ER Document Report ---
ED General - General Chief Complaint: Vomiting Stated Complaint: VOMITING Time Seen by Provider: 07/19/17 17:20 Mode of Arrival: Ambulatory Information source: Patient Notes: 32-year-old female who is 22 weeks presents with complaints of vomiting since midnight last night. Patient denies any fevers or chills denies any vaginal bleeding or discharge. Patient denies any severe contractions or cramping except for in the epigastric region TRAVEL OUTSIDE OF THE [place] IN LAST 30 DAYS: No - HPI Onset: Just prior to arrival Onset/Duration: Sudden Quality of pain: Cramping Severity: Mild Pain Level: 1 Associated symptoms: Nausea, Vomiting Exacerbated by: Denies Relieved by: Denies Similar symptoms previously: No Recently seen / treated by doctor: No - Related Data Allergies/Adverse Reactions: amoxicillin trihydrate [From Augmentin] Allergy (Severe, Verified 07/19/17 16:31 ) Hives codeine [Codeine] Allergy (Severe, Verified 07/19/17 16:31) Hives midazolam HCl [From Versed] Allergy (Severe, Verified 07/19/17 16:31) Abnormal behavior Potassium Clavulanate * [From Augmentin] Allergy (Severe, Verified 07/19/17 16: 31) Hives Sulfa (Sulfonamide Antibiotics) Allergy (Severe, Verified 07/19/17 16:31) Hives Past Medical History - Social History Smoking Status: Never Smoker Cigarette use (# per day): No Chew tobacco use (# tins/day): No Smoking Education Provided: No Family History: Hypertension, Other - Family member has had vomiting as well - Past Medical History Cardiac Medical History: Reports: Hx Hypertension Pulmonary Medical History: Endocrine Medical History: Renal/ Medical History: Denies: Hx Peritoneal Dialysis Past Surgical History: Reports: Hx Cholecystectomy, Hx Tonsillectomy - Immunizations Immunizations up to date: Yes Hx Diphtheria, Pertussis, Tetanus Vaccination: Yes Review of Systems - Review of Systems Notes: REVIEW OF SYSTEMS: CONSTITUTIONAL : Denies fever, chills, or sweats. Denies recent illness. EENT: Denies eye, ear, throat, or mouth pain or symptoms. Denies nasal or sinus congestion or discharge. Denies throat, tongue, or mouth swelling or difficulty swallowing. CARDIOVASCULAR: Denies chest pain. Denies palpitations or racing or irregular heart beat. Denies ankle edema. RESPIRATORY: Denies cough, cold, or chest congestion. Denies shortness of breath, difficulty breathing, or wheezing. GASTROINTESTINAL: Admits to epigastric abdominal pain nausea vomiting GENITOURINARY: Denies difficulty urinating, painful urination, burning, frequency, blood in urine, or discharge. FEMALE GENITOURINARY: Denies vaginal bleeding, heavy or abnormal periods, irregular periods. Denies vaginal discharge or odor. MUSCULOSKELETAL: Denies back or neck pain or stiffness. Denies joint pain or swelling. SKIN: Denies rash, lesions or sores. HEMATOLOGIC : Denies easy bruising or bleeding. LYMPHATIC: Denies swollen, enlarged glands. NEUROLOGICAL: Denies confusion or altered mental status. Denies passing out or loss of consciousness. Denies dizziness or lightheadedness. Denies headache. Denies weakness or paralysis or loss of use of either side. Denies problems with gait or speech. Denies sensory loss, numbness, or tingling. Denies seizures. PSYCHIATRIC: Denies anxiety or stress. Denies depression, suicidal ideation, or homicidal ideation. ALL OTHER SYSTEMS REVIEWED AND NEGATIVE. PHYSICAL EXAMINATION: GENERAL: Well-appearing, well-nourished and in no acute distress. HEAD: Atraumatic, normocephalic. EYES: Pupils equal round and reactive to light, extraocular movements intact, conjunctiva are normal. ENT: Nares patent, oropharynx clear without exudates. Moist mucous membranes. NECK: Normal range of motion, supple without lymphadenopathy LUNGS: Breath sounds clear to auscultation bilaterally and equal. No wheezes rales or rhonchi. HEART: Regular rate and rhythm without murmurs ABDOMEN: Soft, gravid abdomen nontender nondistended no rebound no guarding Female : deferred Musculoskeletal: Normal range of motion, no pitting or edema. No cyanosis. NEUROLOGICAL: Cranial nerves grossly intact. Normal speech, normal gait. Normal sensory, motor exams PSYCH: Normal mood, normal affect. SKIN: Warm, Dry, normal turgor, no rashes or lesions noted. Dictation was performed using [employer] recognition software Physical Exam - Vital signs Vitals: Temp Pulse Resp BP Pulse Ox 97.8 F 90 18 130/78 H 97 07/19/17 16:36 07/19/17 16:36 07/19/17 16:36 07/19/17 16:36 07/19/17 16:36 Course - Re-evaluation Re-evalutation: 07/19/17 20:55 Patient labs noted no significant abnormality, she overall looks quite well, patient was given IV fluids and felt much better, she wishes to be discharged and will be sent home with nausea control After performing a Medical Screening Examination, I estimate there is LOW risk for ACUTE APPENDICITIS, BOWEL OBSTRUCTION, ACUTE CHOLECYSTITIS, PERFORATED DIVERTICULITIS, INCARCERATED HERNIA, PANCREATITIS, PELVIC INFLAMMATORY DISEASE, PERFORATED ULCER, ECTOPIC , or TUBO-OVARIAN ABSCESS, thus I consider the discharge disposition reasonable. Also, there is no evidence or peritonitis , sepsis, or toxicity. I have reevaluated this patient multiple times and no significant life threatening changes are noted. The patient and I have discussed the diagnosis and risks, and we agree with discharging home with close follow-up with the understanding that symptoms and presentations can change. We also discussed returning to the Emergency Department immediately if new or worsening symptoms occur. We have discussed the symptoms which are most concerning (e.g., bloody stool, fever, changing or worsening pain, vomiting) that necessitate immediate return. - Vital Signs Vital signs: Temp Pulse Resp BP Pulse Ox 97.8 F 84 18 123/76 98 07/19/17 18:53 07/19/17 18:53 07/19/17 16:37 07/19/17 18:53 07/19/17 18:53 - Laboratory Result Diagrams: 07/19/17 17:41 07/19/17 17:41 Laboratory results interpreted by me: 07/19/17 07/19/17 07/19/17 17:35 17:41 17:41 Hct 35.5 L Sodium 134.2 L Creatinine 0.47 L Urine Protein 100 H Urine Ketones 20 H Urine Urobilinogen 2.0 H Ur Leukocyte Esterase TRACE H Urine Ascorbic Acid 20 H Discharge - Discharge Clinical Impression: Nausea/vomiting in , Dehydration Condition: Stable Disposition: HOME, SELF-CARE Instructions: Antinausea Medication ([facility]) Prescriptions: Metoclopramide HCl [Reglan 10 mg Tablet] 1 - 2 tab PO ASDIR PRN #25 tablet PRN Reason: Forms: Return to Work Referrals: FELICIA KUMAR PA-C [Primary Care Provider] - Follow up tomorrow
[2017-07-19 17:51] LABS: APPEARANCE,URINE SLIGHTLY-CLOUDY; BILIRUBIN,URINE NEGATIVE (NEGATIVE); GLUCOSE, URINE NEGATIVE (NEGATIVE); KETONES,URINE 20 mg/dL (NEGATIVE); LEUKOCYTE ESTERASE,URINE TRACE (NEGATIVE); NITRITE,URINE NEGATIVE (NEGATIVE); PROTEIN,URINE 100 mg/dL (NEGATIVE); URINE SPECIFIC GRAVITY 1.036
[2017-07-19 17:52] LABS: COLOR,URINE YELLOW
[2017-07-19 17:55] LABS: ABSOLUTE LYMPHOCYTES (AUTO) 1.2 10^3/uL (0.5-4.7); ABSOLUTE MONOCYTES (AUTO) 0.4 10^3/uL (0.1-1.4); ABSOLUTE NEUT (AUTO) 5.8 10^3/uL (1.7-8.2); BASOPHILS % (AUTO) 0.2 % (0-2); EOSINOPHILS % (AUTO) 0.2 % (0-6); HEMATOCRIT 35.5 % (36.0-47.0); HEMOGLOBIN 12.3 g/dL (12.0-15.5); LYMPHOCYTES % (AUTO) 16.3 % (13-45); MEAN CORPUSCULAR HEMOGLOBIN 30.4 pg (27.0-33.4); MEAN CORPUSCULAR HGB CONC 34.6 g/dL (32.0-36.0); MEAN CORPUSCULAR VOLUME 88 fl (80-97); MONOCYTES % (AUTO) 5.9 % (3-13); PLATELET COUNT 253 10^3/uL (150-450); RED BLOOD COUNT 4.03 10^6/uL (3.72-5.28); RED CELL DISTRIBUTION WIDTH 13.3 % (11.5-14.0); SEGMENTED NEUTROPHILS % (AUTO) 77.4 % (42-78); TOTAL CELLS COUNTED % (AUTO) 100 %; WHITE BLOOD COUNT 7.4 10^3/uL (4.0-10.5)
[2017-07-19 18:16] LABS: ALANINE AMINOTRANSFERASE 27 U/L (9-52); ALBUMIN 3.9 g/dL (3.5-5.0); ALKALINE PHOSPHATASE 86 U/L (38-126); ANION GAP 10 (5-19); ASPARTATE AMINO TRANSFERASE 18 U/L (14-36); BILIRUBIN,DIRECT 0.2 mg/dL (0.0-0.4); BILIRUBIN,TOTAL 0.4 mg/dL (0.2-1.3); BLOOD UREA NITROGEN 13 mg/dL (7-20); CALCIUM 9.1 mg/dL (8.4-10.2); CARBON DIOXIDE 23 mmol/L (22-30); CHLORIDE 101 mmol/L (98-107); GLUCOSE 99 mg/dL (75-110); POTASSIUM 3.7 mmol/L (3.6-5.0); SODIUM 134.2 mmol/L (137-145); TOTAL PROTEIN 6.3 g/dL (6.3-8.2)
[2017-07-19 18:54] VITALS: BP 123/76
== END 2017-07-19 18:45 | disposition home or self-care (01) ==
LOC: ER 16:29
DX: O21.2 Late vomiting of pregnancy (principal); E86.0 Dehydration; Z3A.22 22 weeks gestation of pregnancy; Z88.0 Allergy status to penicillin; Z88.6 Allergy status to analgesic agent; Z88.2 Allergy status to sulfonamides
CPT/HCPCS: 99283; 96361; 96374; 36415; 85025; 80053; 81001; J2765; J7030

== ENCOUNTER 2017-07-26 18:09 | Outpatient (CLI) | payer MEDICAID ==
[2017-07-26 19:12] LABS: APPEARANCE,URINE SLIGHTLY-CLOUDY; BILIRUBIN,URINE NEGATIVE (NEGATIVE); COLOR,URINE YELLOW; GLUCOSE, URINE NEGATIVE (NEGATIVE); KETONES,URINE NEGATIVE (NEGATIVE); LEUKOCYTE ESTERASE,URINE NEGATIVE (NEGATIVE); NITRITE,URINE NEGATIVE (NEGATIVE); PROTEIN,URINE 30 mg/dL (NEGATIVE); URINE SPECIFIC GRAVITY 1.021
[2017-07-26 19:34] LABS: URINE AMPHETAMINES SCREEN NEGATIVE; URINE BARBITURATES SCREEN NEGATIVE; URINE BENZODIAZEPINES SCREEN NEGATIVE; URINE COCAINE SCREEN NEGATIVE; URINE MARIJUANA (THC) SCREEN NEGATIVE; URINE METHADONE SCREEN NEGATIVE; URINE PHENCYCLIDINE SCREEN NEGATIVE
--- NOTE | 2017-07-26 20:30 | RADIOLOGY REPORT (SQ) ---
EXAM DESCRIPTION: U/S OB LIMITED COMPLETED DATE/TIME: 07/26/2017 7:46 pm REASON FOR STUDY: 23 week spotting (cervical length) COMPARISON: 03/10/2017 TECHNIQUE: Limited transvaginal and transabdominal grayscale ultrasound for evaluation of specific r equested obstetrical parameters. LIMITATIONS: None. FINDINGS: CERVICAL LENGTH: 5.2 cm. Closed. LVP: 7.1 cm. FHR: 155 beats per minute. PRESENTATION: Variable OTHER: The placenta is low lying. IMPRESSION: Gestation of 23 weeks 5 days with a low lying placenta and findings as described. Trimester of : Second trimester - 13 weeks 1 day to 27 weeks 6 days. TECHNICAL DOCUMENTATION: JOB ID: [id number] [employer]- All Rights Reserved Reading location - IP/workstation name: [email or web address]
== END 2017-07-26 20:45 | disposition home or self-care (01) ==
LOC: LC 18:09
PROVIDERS: ATTEND Obstetrics & Gynecology
PROC: 4A1HXCZ Monitoring of Products of Conception, Cardiac Rate, External Approach (ICD-10-PCS; principal; 2017-07-26)
DX: O26.852 Spotting complicating pregnancy, second trimester (principal); O47.02 False labor before 37 completed weeks of gestation, second trimester; Z3A.23 23 weeks gestation of pregnancy
CPT/HCPCS: 76815; 80307; 81001

== ENCOUNTER 2017-09-16 11:52 | Outpatient (CLI) | payer MEDICAID ==
[2017-09-16 12:35] LABS: APPEARANCE,URINE SLIGHTLY-CLOUDY; BILIRUBIN,URINE NEGATIVE (NEGATIVE); CALCIUM OXALATE CRYSTALS,URINE RARE /HPF; COLOR,URINE YELLOW; GLUCOSE, URINE NEGATIVE (NEGATIVE); KETONES,URINE TRACE mg/dL (NEGATIVE); LEUKOCYTE ESTERASE,URINE SMALL (NEGATIVE); NITRITE,URINE NEGATIVE (NEGATIVE); PROTEIN,URINE 30 mg/dL (NEGATIVE); URINE SPECIFIC GRAVITY 1.024
[2017-09-16 12:50] LABS: URINE AMPHETAMINES SCREEN NEGATIVE; URINE BARBITURATES SCREEN NEGATIVE; URINE BENZODIAZEPINES SCREEN NEGATIVE; URINE COCAINE SCREEN NEGATIVE; URINE MARIJUANA (THC) SCREEN NEGATIVE; URINE METHADONE SCREEN NEGATIVE; URINE PHENCYCLIDINE SCREEN NEGATIVE
== END 2017-09-16 13:28 | disposition home or self-care (01) ==
LOC: LC 11:52
PROVIDERS: ATTEND Obstetrics & Gynecology
PROC: 4A1HXCZ Monitoring of Products of Conception, Cardiac Rate, External Approach (ICD-10-PCS; principal; 2017-09-16)
DX: Z34.93 Encounter for supervision of normal pregnancy, unspecified, third trimester (principal); Z3A.31 31 weeks gestation of pregnancy
CPT/HCPCS: 80307; 81001

== ENCOUNTER 2017-10-07 13:45 | Outpatient (CLI) | payer MEDICAID ==
--- NOTE | 2017-10-07 14:55 | Non Stress Test Report ---
Non Stress Test Datetime Report Generated by CPN: 10/07/2017 14:55 DEMOGRAPHIC EGA NST: 34.1 EGA NST: 31.1 INDICATION Indication for Study: Chronic Hypertension MONITORING Monitor Explained: Monitor Explained; Test Explained; Patient Verbalized Understanding Time on Monitor: 10/07/2017 14:07 Time on Monitor: 09/16/2017 12:01 Time off Monitor: 10/07/2017 14:38 NST Duration: 31 NST INTERVENTIONS NST Interventions: PO Hydration; Reposition Patient Physician Notified NST: A Gaines CNM BABY A: [id number] BABY A Movement : Present Contraction Frequency : 0 FHR Baseline : 135 Accelerations : 15X15 Decelerations : None Variability : Moderate 6-25bpm NST Review: Meets Criteria for Reactive NST NST Review and Verified By : Preet White Rn NST Results: Reactive NST REPORT Report Trigger: Send Report
[2017-10-07 15:11] LABS: ABSOLUTE LYMPHOCYTES (AUTO) 1.7 10^3/uL (0.5-4.7); ABSOLUTE MONOCYTES (AUTO) 0.6 10^3/uL (0.1-1.4); ABSOLUTE NEUT (AUTO) 4.3 10^3/uL (1.7-8.2); BASOPHILS % (AUTO) 0.3 % (0-2); EOSINOPHILS % (AUTO) 0.5 % (0-6); HEMATOCRIT 31.2 % (36.0-47.0); HEMOGLOBIN 10.8 g/dL (12.0-15.5); MEAN CORPUSCULAR HEMOGLOBIN 29.3 pg (27.0-33.4); MEAN CORPUSCULAR HGB CONC 34.7 g/dL (32.0-36.0); MEAN CORPUSCULAR VOLUME 85 fl (80-97); MONOCYTES % (AUTO) 9.1 % (3-13); PLATELET COUNT 198 10^3/uL (150-450); RED BLOOD COUNT 3.68 10^6/uL (3.72-5.28); SEGMENTED NEUTROPHILS % (AUTO) 64.1 % (42-78); TOTAL CELLS COUNTED % (AUTO) 100 %; WHITE BLOOD COUNT 6.7 10^3/uL (4.0-10.5)
[2017-10-07 15:27] LABS: ALANINE AMINOTRANSFERASE 25 U/L (9-52); ALKALINE PHOSPHATASE 127 U/L (38-126); ANION GAP 9 (5-19); ASPARTATE AMINO TRANSFERASE 18 U/L (14-36); BILIRUBIN,DIRECT 0.3 mg/dL (0.0-0.4); BILIRUBIN,TOTAL 0.3 mg/dL (0.2-1.3); BLOOD UREA NITROGEN 10 mg/dL (7-20); CALCIUM 8.8 mg/dL (8.4-10.2); CARBON DIOXIDE 23 mmol/L (22-30); CHLORIDE 106 mmol/L (98-107); GLUCOSE 80 mg/dL (75-110); LDH 441 U/L (313-618); POTASSIUM 4.2 mmol/L (3.6-5.0); SODIUM 138.3 mmol/L (137-145); TOTAL PROTEIN 5.5 g/dL (6.3-8.2); URIC ACID 4.7 mg/dL (2.5-6.2)
[2017-10-07 15:34] LABS: AMORPHOUS SEDIMENT,URINE TRACE /HPF; APPEARANCE,URINE CLOUDY; BILIRUBIN,URINE NEGATIVE (NEGATIVE); GLUCOSE, URINE NEGATIVE (NEGATIVE); KETONES,URINE 20 mg/dL (NEGATIVE); LEUKOCYTE ESTERASE,URINE SMALL (NEGATIVE); NITRITE,URINE NEGATIVE (NEGATIVE); PROTEIN,URINE 30 mg/dL (NEGATIVE); URINE SPECIFIC GRAVITY 1.023
[2017-10-07 15:39] LABS: COLOR,URINE DARK YELLOW
[2017-10-07 15:50] LABS: URINE AMPHETAMINES SCREEN NEGATIVE; URINE BARBITURATES SCREEN NEGATIVE; URINE BENZODIAZEPINES SCREEN NEGATIVE; URINE COCAINE SCREEN NEGATIVE; URINE MARIJUANA (THC) SCREEN NEGATIVE; URINE METHADONE SCREEN NEGATIVE; URINE PHENCYCLIDINE SCREEN NEGATIVE
[2017-10-07 15:52] LABS: URINE CREATININE 274.8 mg/dL (16-327); URINE PROTEIN 6.3 mg/dL (<12)
== END 2017-10-07 16:12 | disposition home or self-care (01) ==
LOC: LC 13:45
PROVIDERS: ATTEND Obstetrics & Gynecology
PROC: 4A1HXCZ Monitoring of Products of Conception, Cardiac Rate, External Approach (ICD-10-PCS; principal; 2017-10-07)
DX: O10.913 Unspecified pre-existing hypertension complicating pregnancy, third trimester (principal); Z3A.34 34 weeks gestation of pregnancy
CPT/HCPCS: 36415; 59025; 80053; 80307; 81001; 82570; 83615; 84156; 84550; 85025

== ENCOUNTER 2017-10-10 10:13 | Outpatient (CLI) | payer MEDICAID ==
[2017-10-10 11:17] LABS: APPEARANCE,URINE SLIGHTLY-CLOUDY; COLOR,URINE AMBER
[2017-10-10 11:18] LABS: BILIRUBIN,URINE MODERATE (NEGATIVE); GLUCOSE, URINE NEGATIVE (NEGATIVE); KETONES,URINE 300 mg/dL (NEGATIVE); LEUKOCYTE ESTERASE,URINE TRACE (NEGATIVE); NITRITE,URINE NEGATIVE (NEGATIVE); PROTEIN,URINE 100 mg/dL (NEGATIVE); URINE SPECIFIC GRAVITY 1.029
[2017-10-10 11:20] LABS: ABSOLUTE LYMPHOCYTES (AUTO) 1.6 10^3/uL (0.5-4.7); ABSOLUTE MONOCYTES (AUTO) 0.4 10^3/uL (0.1-1.4); ABSOLUTE NEUT (AUTO) 3.8 10^3/uL (1.7-8.2); BASOPHILS % (AUTO) 0.3 % (0-2); EOSINOPHILS % (AUTO) 0.4 % (0-6); HEMATOCRIT 32.4 % (36.0-47.0); HEMOGLOBIN 10.8 g/dL (12.0-15.5); LYMPHOCYTES % (AUTO) 27.3 % (13-45); MEAN CORPUSCULAR HEMOGLOBIN 28.6 pg (27.0-33.4); MEAN CORPUSCULAR HGB CONC 33.5 g/dL (32.0-36.0); MEAN CORPUSCULAR VOLUME 85 fl (80-97); MONOCYTES % (AUTO) 6.7 % (3-13); PLATELET COUNT 193 10^3/uL (150-450); RED CELL DISTRIBUTION WIDTH 14.1 % (11.5-14.0); SEGMENTED NEUTROPHILS % (AUTO) 65.3 % (42-78); TOTAL CELLS COUNTED % (AUTO) 100 %; WHITE BLOOD COUNT 5.8 10^3/uL (4.0-10.5)
[2017-10-10 11:25] LABS: URINE AMPHETAMINES SCREEN NEGATIVE; URINE BARBITURATES SCREEN NEGATIVE; URINE BENZODIAZEPINES SCREEN NEGATIVE; URINE COCAINE SCREEN NEGATIVE; URINE MARIJUANA (THC) SCREEN NEGATIVE; URINE METHADONE SCREEN NEGATIVE; URINE PHENCYCLIDINE SCREEN NEGATIVE; URINE PROTEIN 11.4 mg/dL (<12)
[2017-10-10 11:41] LABS: ALANINE AMINOTRANSFERASE 28 U/L (9-52); ALKALINE PHOSPHATASE 138 U/L (38-126); ANION GAP 9 (5-19); ASPARTATE AMINO TRANSFERASE 17 U/L (14-36); BILIRUBIN,DIRECT 0.3 mg/dL (0.0-0.4); BILIRUBIN,TOTAL 0.3 mg/dL (0.2-1.3); BLOOD UREA NITROGEN 10 mg/dL (7-20); CALCIUM 9.3 mg/dL (8.4-10.2); CARBON DIOXIDE 21 mmol/L (22-30); CHLORIDE 107 mmol/L (98-107); GLUCOSE 89 mg/dL (75-110); LDH 442 U/L (313-618); POTASSIUM 4.1 mmol/L (3.6-5.0); SODIUM 136.7 mmol/L (137-145); TOTAL PROTEIN 5.6 g/dL (6.3-8.2); URIC ACID 5.1 mg/dL (2.5-6.2)
--- NOTE | 2017-10-10 11:41 | Non Stress Test Report ---
Non Stress Test Datetime Report Generated by CPN: 10/10/2017 11:41 DEMOGRAPHIC EGA NST: 34.4 INDICATION Indication for Study: Chronic Hypertension; Ordered by Provider MONITORING Monitor Explained: Monitor Explained; Test Explained; Patient Verbalized Understanding Time on Monitor: 10/10/2017 10:26 Time off Monitor: 10/10/2017 10:55 NST Duration: 29 NST INTERVENTIONS NST Interventions: PO Hydration; Reposition Patient Physician Notified NST: C Smith CNM BABY A: [id number] BABY A Movement : Present Contraction Frequency : none FHR Baseline : 135 Accelerations : 15X15 Decelerations : None Variability : Moderate 6-25bpm NST Review: Meets Criteria for Reactive NST NST Review and Verified By : TAY Storm Results: Reactive NST REPORT Report Trigger: Send Report
[2017-10-10 11:50] LABS: URINE CREATININE 416.9 mg/dL (16-327)
== END 2017-10-10 12:08 | disposition home or self-care (01) ==
LOC: LC 10:13
PROVIDERS: ATTEND Obstetrics & Gynecology
PROC: 4A1HXCZ Monitoring of Products of Conception, Cardiac Rate, External Approach (ICD-10-PCS; principal; 2017-10-10)
DX: O10.913 Unspecified pre-existing hypertension complicating pregnancy, third trimester (principal); Z3A.34 34 weeks gestation of pregnancy
CPT/HCPCS: 36415; 59025; 80053; 80307; 81001; 82570; 83615; 84156; 84550; 85025

== ENCOUNTER → 2017-10-12 | Outpatient (CLI) | payer MEDICAID ==
[2017-10-12 11:11] LABS: 24 HOUR URINE PROTEIN RESULT 389 mg/day (42-225); URINE PROTEIN 16.9 mg/dL (<12)
== END ==
LOC: OD 09:15
PROVIDERS: ATTEND Midwife
DX: O10.913 Unspecified pre-existing hypertension complicating pregnancy, third trimester (principal); Z3A.34 34 weeks gestation of pregnancy
CPT/HCPCS: 84156

== ENCOUNTER 2017-10-13 11:05 | Outpatient (CLI) | payer MEDICAID ==
--- NOTE | 2017-10-13 11:55 | Non Stress Test Report ---
Non Stress Test Datetime Report Generated by CPN: 10/13/2017 11:54 DEMOGRAPHIC EGA NST: 35.0 INDICATION Indication for Study: Chronic Hypertension VITAL SIGNS Temperature - NST: 97.9 Pulse - NST: 77 RESP - NST: 18 NBPSYS NST: 110 NBPDIA NST: 66 MONITORING Monitor Explained: Monitor Explained; Test Explained; Patient Verbalized Understanding Time on Monitor: 10/13/2017 11:16 Time off Monitor: 10/13/2017 11:37 NST Duration: 21 NST INTERVENTIONS NST Interventions: PO Hydration; Reposition Patient Physician Notified NST: Kathi Knowles CNM BABY A: [id number] BABY A Movement : Present Contraction Frequency : denies FHR Baseline : 130 Accelerations : 15X15 Decelerations : None Variability : Moderate 6-25bpm NST Review: Meets Criteria for Reactive NST NST Review and Verified By : TAY Manrique NST Results: Reactive NST REPORT Report Trigger: Send Report
== END 2017-10-13 11:44 | disposition home or self-care (01) ==
LOC: LC 11:05
PROVIDERS: ATTEND Obstetrics & Gynecology
PROC: 4A1HXCZ Monitoring of Products of Conception, Cardiac Rate, External Approach (ICD-10-PCS; principal; 2017-10-13)
DX: O10.913 Unspecified pre-existing hypertension complicating pregnancy, third trimester (principal); Z3A.35 35 weeks gestation of pregnancy
CPT/HCPCS: 59025

== ENCOUNTER 2017-10-17 12:27 | Outpatient (CLI) | payer MEDICAID ==
--- NOTE | 2017-10-17 14:29 | Non Stress Test Report ---
Non Stress Test Datetime Report Generated by CPN: 10/17/2017 14:28 DEMOGRAPHIC EGA NST: 35.4 INDICATION Indication for Study: Diabetes Mellitus; Ordered by Provider Indication for Study (NST) Other: CHTN VITAL SIGNS Temperature - NST: 98.7 Pulse - NST: 81 RESP - NST: 22 NBPSYS NST: 125 NBPDIA NST: 68 MONITORING Monitor Explained: Monitor Explained; Test Explained; Patient Verbalized Understanding Time on Monitor: 10/17/2017 12:43 Time off Monitor: 10/17/2017 13:24 NST Duration: 41 NST INTERVENTIONS NST Interventions: PO Hydration; Reposition Patient Physician Notified NST: J NEGRON, CNM REVIEWED STRIP BABY A: [id number] BABY A Movement : Present Contraction Frequency : NONE FHR Baseline : 135 Accelerations : 15X15 Decelerations : None Variability : Moderate 6-25bpm NST Review: Meets Criteria for Reactive NST NST Review and Verified By : TAY Wiggins Results: Reactive NST REPORT Report Trigger: Send Report
== END 2017-10-17 13:55 | disposition home or self-care (01) ==
LOC: LC 12:27
PROVIDERS: ATTEND Obstetrics & Gynecology Gynecology
PROC: 4A1HXCZ Monitoring of Products of Conception, Cardiac Rate, External Approach (ICD-10-PCS; principal; 2017-10-17)
DX: O10.913 Unspecified pre-existing hypertension complicating pregnancy, third trimester (principal); O24.419 Gestational diabetes mellitus in pregnancy, unspecified control; Z3A.35 35 weeks gestation of pregnancy
CPT/HCPCS: 59025

== ENCOUNTER 2017-10-20 12:38 | Outpatient (CLI) | payer MEDICAID | END 2017-10-20 13:32 | disposition home or self-care (01) | LOC: LC 12:38 | PROVIDERS: ATTEND Obstetrics & Gynecology | PROC: 4A1HXCZ Monitoring of Products of Conception, Cardiac Rate, External Approach (ICD-10-PCS; principal; 2017-10-20) | DX: O10.913 Unspecified pre-existing hypertension complicating pregnancy, third trimester (principal); Z3A.36 36 weeks gestation of pregnancy | CPT/HCPCS: 59025 ==

== ENCOUNTER 2017-10-30 17:56 | Inpatient (IN) | payer MEDICAID ==
--- NOTE | 2017-10-30 18:25 | Non Stress Test Report ---
Non Stress Test Datetime Report Generated by CPN: 10/30/2017 18:24 DEMOGRAPHIC Test Number: 1 EGA NST: 36.0 INDICATION Indication for Study: Intrauterine Growth Restriction; Gestational Hypertension; Ordered by Provider MONITORING Monitor Explained: Monitor Explained; Test Explained; Patient Verbalized Understanding Time on Monitor: 10/20/2017 13:02 Time off Monitor: 10/20/2017 13:29 NST Duration: 27 NST INTERVENTIONS NST Interventions: PO Hydration; Other NST Interventions Other: popsicle Physician Notified NST: H. Jayden CNM BABY A: [id number] BABY A Movement : Present Contraction Frequency : 0 FHR Baseline : 135 Accelerations : 15X15 Decelerations : None Variability : Moderate 6-25bpm NST Review: Meets Criteria for Reactive NST NST Review and Verified By : Maritza CROSS NST Results: Reactive NST REPORT Report Trigger: Send Report
[2017-10-30] MEDS ORDERED: RINGERS SOLUTION,LACTATED 1,000 ML IV PRN (18:26)
[2017-10-30] MEDS ORDERED: DINOPROSTONE 10 MG VAGINAL INSERT.SR PV PRN (18:26)
[2017-10-30 19:08] LABS: APPEARANCE,URINE SLIGHTLY-CLOUDY; BILIRUBIN,URINE NEGATIVE (NEGATIVE); COLOR,URINE AMBER; GLUCOSE, URINE NEGATIVE (NEGATIVE); KETONES,URINE NEGATIVE (NEGATIVE); LEUKOCYTE ESTERASE,URINE SMALL (NEGATIVE); NITRITE,URINE NEGATIVE (NEGATIVE); PROTEIN,URINE 100 mg/dL (NEGATIVE); URINE SPECIFIC GRAVITY 1.025
[2017-10-30 19:22] LABS: ABSOLUTE LYMPHOCYTES (AUTO) 1.8 10^3/uL (0.5-4.7); ABSOLUTE MONOCYTES (AUTO) 0.4 10^3/uL (0.1-1.4); ABSOLUTE NEUT (AUTO) 4.3 10^3/uL (1.7-8.2); BASOPHILS % (AUTO) 0.4 % (0-2); EOSINOPHILS % (AUTO) 0.5 % (0-6); HEMATOCRIT 31.8 % (36.0-47.0); HEMOGLOBIN 10.9 g/dL (12.0-15.5); LYMPHOCYTES % (AUTO) 27.5 % (13-45); MEAN CORPUSCULAR HEMOGLOBIN 28.7 pg (27.0-33.4); MEAN CORPUSCULAR HGB CONC 34.3 g/dL (32.0-36.0); MEAN CORPUSCULAR VOLUME 84 fl (80-97); MONOCYTES % (AUTO) 6.3 % (3-13); PLATELET COUNT 212 10^3/uL (150-450); RED BLOOD COUNT 3.79 10^6/uL (3.72-5.28); RED CELL DISTRIBUTION WIDTH 14.3 % (11.5-14.0); SEGMENTED NEUTROPHILS % (AUTO) 65.3 % (42-78); TOTAL CELLS COUNTED % (AUTO) 100 %; WHITE BLOOD COUNT 6.6 10^3/uL (4.0-10.5)
[2017-10-30] MEDS ORDERED: DINOPROSTONE 10 MG VAGINAL INSERT.SR ONE (20:01)
[2017-10-30 21:01] LABS: URINE AMPHETAMINES SCREEN NEGATIVE; URINE BARBITURATES SCREEN NEGATIVE; URINE BENZODIAZEPINES SCREEN NEGATIVE; URINE COCAINE SCREEN NEGATIVE; URINE MARIJUANA (THC) SCREEN NEGATIVE; URINE METHADONE SCREEN NEGATIVE; URINE PHENCYCLIDINE SCREEN NEGATIVE
[2017-10-31] MEDS ORDERED: ZOLPIDEM TARTRATE 5 MG TABLET ONE (02:54)
[2017-10-31] MEDS ORDERED: ACETAMINOPHEN 325 MG TABLET ONE (04:38)
[2017-10-31] MEDS ORDERED: LABETALOL HCL 200 MG TABLET ONE ×2 (06:02→06:05)
[2017-10-31] MEDS ORDERED: LABETALOL HCL 200 MG TABLET PO ONE (06:30)
[2017-10-31] MEDS ORDERED: HYDRALAZINE HCL INJ/PF 20 MG/1 ML SDV IV ONE (06:58)
[2017-10-31] MEDS ORDERED: HYDRALAZINE HCL INJ/PF 20 MG/1 ML SDV ONE (06:58)
--- NOTE | 2017-10-31 07:20 | Admission Physical ---
Datetime Report Generated by CPN: 10/31/2017 07:19 CURRENT ADMISSION Chief Complaint: Scheduled Induction of Labor Indication for Induction: Chronic Primary/Essential HTN; Maternal Diabetes Admit Impression : Term, Intrauterine ; Intact Membranes Admit Plan: Admit to Unit; Initiate Labor Induction Protocol ALLERGIES Medication Allergies: Yes Medication Allergies: midazolam HCl/SV/Abnormal behavi (10/30/2017); Sulfa (Sulfonamide Antibiotics)/SV/Hives (10/30/2017); codeine/SV/Hives (10/30/2017); Potassium Clavulanate */SV/Hives (10/30/2017) Latex: No Latex Allergies Food Allergies: none Environmental Allergies: none OBSTETRICAL HISTORY EDC: 11/17/2017 00:00 : 2 Para: 1 Term: 1 : 0 SAB: 0 IAB: 0 Ectopic: 0 Livin Cesareans: 0 VBACs: 0 Multiple Births: 0 Gestational Diabetes: Yes Rh Sensitization: No Incompetent Cervix: No KRISTIAN: No Infertility: No ART Treatment: No Uterine Anomaly: No IUGR: Yes Hx Previous C/S: No Macrosomia: No Hx Loss/Stillborn: No PIH: No Hx : No Placenta Previa/Abruption: No Depression/PP Depression: No PTL/PROM: No Post Hemorrhage: No Current Procedures: Ultrasound; NST Obstetrical History Comments: G1 2010 38 wks girl G2 current, CHTN, GDM, IUGR? SEE RECORDS Alcohol: No Marijuana : No Cocaine: No Other Illicit Drugs: No Cigarettes: Never Smoker. [id number] MEDICAL HISTORY Diabetes: Yes Diabetes Type: Gestational Diabetes Blood Transfusion: No Pulmonary Disease (Asthma, TB): No Breast Disease: No Hypertension: No Business Proposal Rep Surgery: No Heart Disease: No Hosp/Surgery: No Autoimmune Disorder: No Anesthetic Complications: No Kidney Disease: No Abnormal Pap Smear: No Neuro/Epilepsy: No Psychiatric Disorders: No Other Medical Diseases: No Hepatitis/Liver Disease: No Significant Family History: No Varicosities/Phlebitis: No Trauma/Violence : No Thyroid Dysfunction: No Medical History Comments: gall bladder removal 2008 tonsilectomy and adenoidectomy INFECTIOUS HISTORY Gonorrhea: No Genital Herpes: No Chlamydia: Yes Tuberculosis: No Syphilis: No Hepatitis: No HIV/AIDS Exposure: No Rash or Viral Illness: No HPV: No Infectious History Comments: TERRA 05/30/17 PHYSICAL EXAM General: Normal HEENT: Normal Neurologic: Normal Thyroid: Normal Heart: Normal Lungs: Normal Breast: Normal Back: Normal Abdomen: Normal Genitourinary Exam: Normal Extremities: Normal DTRs: Normal Pelvic Type: Adequate Vital Signs: Reviewed Details Vital Signs: several severe range pressures VAGINAL EXAM Dilatation: 1 Effacement: 0 Station: -4 MEMBRANES Pooling: Negative Membranes: Intact FETUS A EGA: 37.4 Monitoring: External US FHR- Baseline: 145 Variability: Moderate 6-25bpm Accelerations: 15X15 Decelerations: None FHR Category: Category I Estimated Weight (gm): 3000 Presentation: Vertex PLANS FOR LABOR AND DELIVERY Labor and Delivery: None Pain Management: Epidural Feeding Preference: Formula Benefit of Breast Feed Discussed: Yes Circumcision: N/A INFORMED CONSENT Signature: with User ID: [email or web address]
[2017-10-31] MEDS ORDERED: MAG HYDROX/AL HYDROX/SIMETH SUSP 30 ML UDCUP ONE (07:51)
[2017-10-31] MEDS ORDERED: MISOPROSTOL 0.2 MG TABLET ONE (09:32)
[2017-10-31] MEDS ORDERED: LIDOCAINE 1% INJ-PF (10 MG/ML) 30 ML SDV ONE (09:32)
[2017-10-31] MEDS ORDERED: OXYTOCIN/NORMAL SALINE 20 UNIT/1,000 ML RTUINJ ONE ×2 (09:33→10:19)
[2017-10-31] MEDS ORDERED: VANCOMYCIN HCL INJ 1000 MG VIAL ONE (10:19)
--- NOTE | 2017-10-31 10:23 | L&D Progress Notes ---
PROGRESS NOTES Datetime Report Generated by CPN: 10/31/2017 10:23 PROGRESS NOTE Impression Other: IUP @ [id number] stable Procedures: Sterile Vag Exam Plan: Continue Present Management; Induction Informed Consent Obtained: Vaginal Delivery; Induction of Labor; Risks, Benefits and Alternatives Discussed Vital Signs : Reviewed Vital Signs Comments: Last BP mild range Comment: S: pt. reports painful contractions, desires epidural at some point. No other concerns O: as stated A: IUP @ [id number] P: will start pitocin and vancomycin, reassess as clinically indicated, earlier prn. Epidural prn. VAGINAL EXAM Dilatation: 3 Dilatation: 1 Effacement: 0 Effacement: 0 Station: -3 Station: -4 Contractions: irregular MEMBRANES Pooling: Negative Membranes: Intact Membranes: Intact FETUS A FHR - Baseline: 125 Monitoring: External US Variability: Moderate 6-25bpm Accelerations: 15X15 Decelerations: Variable : 37.4 Estimated Weight (gm): 3000 Presentation: Vertex SIGNATURE SIGNATURE: 10,[id number];14,[id number];13,[id number] SIGNATURE: 13,[id number];14,[id number] SIGNATURE: 14,[id number] SIGNATURE: 14,[id number] SIGNATURE: 14,[id number] SIGNATURE: 14,[id number] SIGNATURE: 14,[id number] Assignment: Dayana Toro MD Signature: with User ID: Promise : with User ID: Promise
[2017-10-31] MEDS ORDERED: RINGERS SOLUTION,LACTATED 1,000 ML IV PRN (10:24)
[2017-10-31] MEDS ORDERED: OXYTOCIN/NORMAL SALINE 20 UNIT/1,000 ML RTUINJ IV PRN ×2 (10:24→16:16)
[2017-10-31] MEDS ORDERED: VANCOMYCIN HCL INJ 1000 MG VIAL IV SCH (11:00)
--- NOTE | 2017-10-31 13:36 | L&D Progress Notes ---
PROGRESS NOTES Datetime Report Generated by CPN: 10/31/2017 13:35 PROGRESS NOTE Impression Other: IUP @[id number] stable Procedures: Artificial ROM; Sterile Vag Exam Plan: Continue Present Management Informed Consent Obtained: Vaginal Delivery; Induction of Labor; Risks, Benefits and Alternatives Discussed Vital Signs : Reviewed Vital Signs Comments: CHTN-mild range Comment: S: breathing with contractions, desires epidural at this time O: mild range BPs, pit @ 6mu/min , cervix as stated A: IUP @ 37w4d IOL-stable progressing AROM- moderate clear/bloody fluid, tolerated well P: continue IOL, bolusing for epidural now. VAGINAL EXAM Dilatation: 4 Effacement: 30 Station: -2 Contractions: 2 MEMBRANES Membranes: Ruptured Amniotic Fluid Color: Clear-bloody FETUS A Monitoring: External US Variability: Moderate 6-25bpm FHR Category: Category I FETUS C SIGNATURE: 13,[id number];14,[id number];10,[id number] Assignment: Dayana Toro MD Signature: with User ID: Promise : with User ID: Promise
[2017-10-31] MEDS ORDERED: EPHEDRINE SULFATE INJ 50 MG/1 ML AMPULE ONE (14:04)
[2017-10-31] MEDS ORDERED: FENTANYL/BUPIVACAINE/NS/PF 300 MCG/150 ML RTUINJ EPI ONE (14:04)
[2017-10-31] MEDS ORDERED: BUPIVACAINE HCL 0.25 % INJ/PF (2.5 MG/1 ML) 30 ML VIAL ONE (14:05)
[2017-10-31] MEDS ORDERED: ONDANSETRON HCL INJ/PF 4 MG/2 ML SDV ONE (14:30)
[2017-10-31] MEDS ORDERED: ONDANSETRON HCL INJ/PF 4 MG/2 ML SDV IV ONE (14:30)
[2017-10-31 14:45] LABS: GON PCR NOT DETECTED (NOT DETECT)
[2017-10-31 14:54] LABS: CHLAM PCR NOT DETECTED (NOT DETECT)
[2017-10-31] MEDS ORDERED: NA PHOS,M-B/NA PHOS,DI-BA (ADULT) 133 ML ENEMA PR PRN (16:16)
[2017-10-31] MEDS ORDERED: ACETAMINOPHEN WITH CODEINE #3 TABLET PO PRN (16:16)
[2017-10-31] MEDS ORDERED: MAGNESIUM HYDROXIDE SUSP 30 ML UDCUP PO PRN (16:16)
[2017-10-31] MEDS ORDERED: DIPHENHYDRAMINE HCL 25 MG CAPSULE PO PRN (16:16)
[2017-10-31] MEDS ORDERED: PROMETHAZINE HCL 25 MG SUPP.RECT PR PRN (16:16)
[2017-10-31] MEDS ORDERED: PSEUDOEPHEDRINE HCL 30 MG TABLET PO PRN (16:16)
[2017-10-31] MEDS ORDERED: BENZOCAINE/MENTHOL AEROSOL SPRAY 56 ML TOP PRN (16:16)
[2017-10-31] MEDS ORDERED: DIBUCAINE 1% OINTMENT 28 GM TP PRN (16:16)
[2017-10-31] MEDS ORDERED: GLYCERIN/WITCH HAZEL LEAF 1 EACH MED..PAD TP PRN (16:16)
[2017-10-31] MEDS ORDERED: ACETAMINOPHEN 650 MG SUPP.RECT PR PRN (16:16)
[2017-10-31] MEDS ORDERED: PROMETHAZINE HCL 25 MG TABLET PO PRN (16:16)
[2017-10-31] MEDS ORDERED: PROMETHAZINE HCL INJ 25 MG/1 ML VIAL IV PRN (16:16)
[2017-10-31] MEDS ORDERED: DIPH/PERTUSS(ACELL)/TETANUS VAC/PF 0.5 ML SYR (>=10YO) IM PRN (16:16)
[2017-10-31] MEDS ORDERED: MEASLES,MUMPS&RUBELLA VACC/PF 0.5 ML VIAL SUBCUT PRN (16:16)
[2017-10-31] MEDS ORDERED: IBUPROFEN 800 MG TABLET ONE (16:24)
--- NOTE | 2017-10-31 17:56 | Delivery Summary ---
Del Sum A-C Datetime Report Generated by CPN: 10/31/2017 17:55 DELIVERY PERSONNEL DELIVERY PERSONNEL: [id number] Delivery Doctor:: Kristan Smith CNM Labor and Delivery Nurse:: Tristan Perez RNwood drilling machine operator Nurse:: Ladi Castellano RN Food And Beverage Director/PIN ATTACHER: Angella Gomez PIN ATTACHER II Food And Beverage Director/PIN ATTACHER: Shraddha RAMSEY, ST Additional Personnel: : Ravi Edwards RN MATERNAL INFORMATION Delivery Anesthesia: Epidural Medications After Delivery: Pitocin Bolus-Please Comment; Pitocin Drip 20 Units/1000ml NSS Maternal Complications: Other Complication Details: GDM; CHTN Provider Comments: Pt. with strong urge to push and found to be c/c/+2. Started pushing and delivered a viable baby girl with a lose nuchal x1. Vigorous respiratory effort and cry at spontaneously at delivery. Baby placed on maternal abdomen, cord allowed to stop pulsating then clamped x2 and cut by FOB (3vc cord noted). Placenta delivered spontaneously intact, fundus firm at u-1. minimal bleeding. Mother and baby skin to skin and bonding at this time. LABOR SUMMARY EDC: 11/17/2017 00:00 No. Babies in Womb: 1 Attempted: No Labor Anesthesia: Epidural LABOR INFORMATION Reason for Induction: Gestational Hypertension; Maternal Diabetes Onset of Labor: 10/31/2017 10:30 Complete Dilatation: 10/31/2017 15:23 Cervical Ripening Agents: Cervidil Oxytocin: Induction Group B Beta Strep: positive Antibiotics # of Doses: 1 Antibiotics Time of Last Dose: 1045 Name of Antibiotic Given: Vancomycin Steroids Given: None Reason Steroids Not Administered: Not Applicable MEMBRANES Membranes Rupture Method: Artificial Rupture of Membranes: 10/31/2017 13:21 Length of Rupture (hr): 2.28 Amniotic Fluid Color: Clear Amniotic Fluid Amount: Small Amniotic Fluid Odor: Normal STAGES OF LABOR Stage 1 hr: 4 Stage 1 min: 53 Stage 2 hr: 0 Stage 2 min: 15 Stage 3 hr: 0 Stage 3 min: 5 Total Time in Labor hr: 5 Total Time in Labor min: 13 VAGINAL DELIVERY Episiotomy: None Laceration #1: None Laceration Extension #1: N/A Other Laceration: RT superficial LABIAL ABRASION Laceration Repair: No Laceration Repair Note: n/a hemostatic Sponge Count Correct: N/A Sharps Count Correct: N/A BABY A INFORMATION Delivery Date/Time: 10/31/2017 15:38 Method of Delivery: Vaginal Born in Route : No : N/A Forceps: N/A Vacuum Extraction: N/A Shoulder Dystocia : No PRESENTATION/POSITION BABY A Presentation: Cephalic Cephalic Presentation: Vertex Vertex Position: Left Occipital Anterior Breech Presentation: N/A PLACENTA INFORMATION BABY A Placenta Delivery Time : 10/31/2017 15:43 Placenta Method of Delivery: Spontaneous Placenta Status: Delivered SCORES BABY A Heart Rate 1 min: >100 bpm Resp Effort 1 min: Good Cry Reflex Irritability 1 min: Cough or Sneeze or Pulls Away Muscle Tone 1 min: Active Motion Color 1 min: Blue/Pale Resuscitation Effort 1 min: Tactile Stimulation SCORE 1 MIN: 8 Heart Rate 5 min: >100 bpm Resp Effort 5 min: Good Cry Reflex Irritability 5 min: Cough or Sneeze or Pulls Away Muscle Tone 5 min: Active Motion Color 5 min: Blue/Pale Resuscitation Effort 5 min: Tactile Stimulation SCORE 5 MIN: 8 INFORMATION BABY A Gestational Age at Delivery: 37.4 Gestational Status: Early Term- 37- 38.6 Weeks Outcome : Liveborn Infant Condition : Stable Infant Sex: Female IDENTIFICATION BABY A Infant Verification Date/Time: 10/31/2017 16:08 ID Band Number: [id number] Mother's Name Verified: Yes RN Verifying Infant: Zoey, RN/, RN WEIGHT/LENGTH BABY A Infant Birthweight (gm): 2955 Weight (lb): 6 Weight (oz): 8 Length (in): 19.50 Infant Length (cm): 49.53 CORD INFORMATION BABY A No. Cord Vessels: 3 Nuchal Cord : Around Neck x1, Loose Cord Blood Taken: Yes-For Eval (Mom's Blood Type - or O+) Infant Suction: Mouth ASSESSMENT BABY A Infant Complications: Multiple Variable Decels Physical Findings at Delivery: Within Normal Limits Respirations: Appears Normal Skin to Skin: Yes Skin to Skin Time (min): 0 Tuber Helper/ALS Called : No Infant Care By: Jose EDWARDS RN Transferred To: Remains with Mother BABY B INFORMATION : N/A SIGNATURES Assignment: Dayana Toro MD Signature: with User ID: [email or web address] : with User ID: Promise
[2017-10-31] MEDS: DOCUSATE SODIUM 100 MG CAPSULE PO SCH (20:08)
[2017-10-31] MEDS: FERROUS SULFATE 325 MG TABLET PO SCH (20:08)
[2017-10-31] MEDS ORDERED: FAMOTIDINE 20 MG TABLET PO SCH (22:00)
[2017-10-31] MEDS: IBUPROFEN 800 MG TABLET PO SCH (22:02)
[2017-10-31] MEDS: LABETALOL HCL 200 MG TABLET PO SCH (22:07)
[2017-11-01] MEDS: IBUPROFEN 800 MG TABLET PO SCH ×3 (05:10→23:09)
--- NOTE | 2017-11-01 09:05 | PDOC PROGRESS REPORT ---
Subjective-OB Progress Note for:: 11/01/17 Subjective: Doing well, no c/o, family at BS, voiding, eating well Physical Exam (OB) Vital Signs: Temp Pulse Resp BP Pulse Ox 97.8 F 87 16 133/67 H 100 11/01/17 07:41 11/01/17 07:41 11/01/17 07:41 11/01/17 07:41 11/01/17 07:41 Intake & Output 10/31/17 11/01/17 11/02/17 06:59 06:59 06:59 Weight 61.5 kg - PIH/Pre-Eclampsia DTR's: 2 + Clonus: Negative Headache: Present Epigastric Pain: No Visual Changes: No - Lochia Lochia Amount: Small 10-25 ml Lochia Color: Serosa/Brown - Abdomen Description: Soft, Round Hernia Present: No Fundal Description: Firm Fundal Height: u/u - u/2 Objective-Diagnostic Laboratory: 10/30/17 19:06 Assessment and Plan(PN) - Assessment and Plan (1) Gestational diabetes mellitus Qualifiers: Gestational diabetes mellitus control: diet-controlled Trimester: second trimester Qualified Code(s): O24.410 - Gestational diabetes mellitus in , diet controlled Is this a current diagnosis for this admission?: Yes (2) Chronic hypertension affecting Is this a current diagnosis for this admission?: Yes (3) Vaginal delivery Is this a current diagnosis for this admission?: Yes - Time Spent with Patient Time with patient: Less than 15 minutes Medications reviewed and adjusted accordingly: Yes - Disposition Anticipated Discharge: Home Within: within 48 hours
[2017-11-01] MEDS: SENNOSIDES/DOCUSATE 8.6-50 MG 1 EACH TABLET PO SCH (09:51)
[2017-11-01] MEDS: DOCUSATE SODIUM 100 MG CAPSULE PO SCH ×2 (09:51→17:06)
[2017-11-01] MEDS: PRENATAL VITAMIN W DHA CAPSULE PO SCH (09:51)
[2017-11-01] MEDS: FERROUS SULFATE 325 MG TABLET PO SCH ×2 (09:51→17:06)
[2017-11-01] MEDS: LABETALOL HCL 200 MG TABLET PO SCH ×2 (09:59→23:10)
[2017-11-02] MEDS: IBUPROFEN 800 MG TABLET PO SCH ×2 (05:35→14:20)
[2017-11-02 07:21] LABS: HEMATOCRIT 28.9 % (36.0-47.0); HEMOGLOBIN 9.8 g/dL (12.0-15.5); MEAN CORPUSCULAR HEMOGLOBIN 29.1 pg (27.0-33.4); MEAN CORPUSCULAR HGB CONC 33.9 g/dL (32.0-36.0); MEAN CORPUSCULAR VOLUME 86 fl (80-97); PLATELET COUNT 178 10^3/uL (150-450); RED BLOOD COUNT 3.36 10^6/uL (3.72-5.28); RED CELL DISTRIBUTION WIDTH 14.7 % (11.5-14.0); WHITE BLOOD COUNT 6.9 10^3/uL (4.0-10.5)
[2017-11-02 08:11] VITALS: BP 140/83
[2017-11-02] MEDS: PRENATAL VITAMIN W DHA CAPSULE PO SCH (09:04)
[2017-11-02] MEDS: SENNOSIDES/DOCUSATE 8.6-50 MG 1 EACH TABLET PO SCH (09:04)
[2017-11-02] MEDS: LABETALOL HCL 200 MG TABLET PO SCH (09:05)
[2017-11-02] MEDS: FERROUS SULFATE 325 MG TABLET PO SCH (09:05)
[2017-11-02] MEDS: DOCUSATE SODIUM 100 MG CAPSULE PO SCH (09:05)
--- NOTE | 2017-11-02 09:42 | PDOC DISCHARGE SUMMARY ---
Final Diagnosis Discharge Date: 11/02/17 - Final Diagnosis (1) Chronic hypertension affecting Is this a current diagnosis for this admission?: Yes (2) Gestational diabetes mellitus Is this a current diagnosis for this admission?: Yes (3) Vaginal delivery Is this a current diagnosis for this admission?: Yes Discharge Data - Discharge Medication Home Medications: Labetalol HCl 50 mg PO BID 10/13/17 Acetaminophen [Tylenol 325 mg Tablet] 650 mg PO Q6HP PRN 10/30/17 Reason(s) for Admission: Induction of Labor Procedures: NST Procedure(s) Note: AROM Intrapartum Procedure(s): Spontaneous Vaginal Delivery Complication(s): Laceration-Vaginal Laceration-Degree: 1st - Diagnosis Test Laboratory: Temp Pulse Resp BP Pulse Ox 97.6 F 66 18 140/83 H 98 11/02/17 08:00 11/02/17 08:00 11/02/17 08:00 11/02/17 08:00 11/02/17 08:00 10/30/17 10/30/17 11/02/17 18:34 19:06 06:58 RBC 3.79 3.36 L Hgb 10.9 L 9.8 L Hct 31.8 L 28.9 L Urine Opiates Screen NEGATIVE - Discharge information/Instructions Discharge Activity: Balance Activity w/Rest, Pelvic Rest, Slowly Increase Activity Discharge Diet: Regular Disposition: HOME, SELF-CARE Follow up with: [facility] in: 3, Weeks
== END 2017-11-02 16:15 | disposition home or self-care (01) | DRG 774 ==
LOC: LR 18:21 → 2S 10-31 17:58
PROVIDERS: ADMIT Obstetrics & Gynecology; ATTEND Obstetrics & Gynecology
PROC: 4A1HXCZ Monitoring of Products of Conception, Cardiac Rate, External Approach (ICD-10-PCS; 2017-10-30)
PROC: 3E0P7VZ Introduction of Hormone into Female Reproductive, Via Natural or Artificial Opening (ICD-10-PCS; 2017-10-30)
PROC: 10907ZC Drainage of Amniotic Fluid, Therapeutic from Products of Conception, Via Natural or Artificial Opening (ICD-10-PCS; 2017-10-30)
PROC: 10E0XZZ Delivery of Products of Conception, External Approach (ICD-10-PCS; principal; 2017-10-31)
DX: O10.02 Pre-existing essential hypertension complicating childbirth (principal); O69.81X0 Labor and delivery complicated by cord around neck, without compression, not applicable or unspecified; O99.824 Streptococcus B carrier state complicating childbirth; O76 Abnormality in fetal heart rate and rhythm complicating labor and delivery; O70.0 First degree perineal laceration during delivery; Z37.0 Single live birth; Z88.2 Allergy status to sulfonamides; Z88.6 Allergy status to analgesic agent; O24.429 Gestational diabetes mellitus in childbirth, unspecified control; Z90.49 Acquired absence of other specified parts of digestive tract; Z3A.37 37 weeks gestation of pregnancy
CPT/HCPCS: 36415; 80307; 81001; 82962; 85025; 85027; 86592; 86850; 86900; 86901; 87491; 87591; 94760; J0360; J2405; J2590; J3010; J3370; J3490